=== PATIENT | female | born 1995 | race Caucasian/White ===

== ENCOUNTER 2018-03-23 07:52 | Emergency (ER) | payer MEDICAID, OTHER ==
[2018-03-23 08:10] VITALS: TEMP 98.1
--- NOTE | 2018-03-23 08:26 | ED.PDOC ---
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 MISSED A PERIOD AND HAS HAD TWO URINE PREGNACY TEST, ONE POSITIVE AND ONE NEGATIVE. - History of Present Illness Timing/Duration: other - TWO WEEKS Severity: moderate Improving Factors: nothing Worsening Factors: nothing Associated Symptoms: other - GALACTORRHEA Allergies/Adverse Reactions: Allergies Amoxicillin Allergy (Verified 03/23/18 08:11) Ceftriaxone [From Rocephin] Allergy (Verified 03/23/18 08:11) Home Medications: Ambulatory Orders HYDROcodone 5MG/APAP 325MG [[place] 5/325] 5 mg PO PRN PRN 03/19/16 Ciprofloxacin [Cipro] 500 mg PO BID #20 tab 03/30/16 Naproxen [Naprosyn] 250 mg PO BID #10 tab 03/23/18 Nitrofurantoin Monohydrate Mac [Macrobid] 100 mg PO BID #20 capsule 03/23/18 Review of Systems - Review of Systems Constitutional: States: malaise EENTM: States: no symptoms reported Respiratory: States: no symptoms reported Cardiology: States: no symptoms reported Gastrointestinal/Abdominal: States: no symptoms reported Genitourinary: States: other - PELVIC CRAMPS AND GALACTORRHEA Musculoskeletal: States: no symptoms reported Skin: States: no symptoms reported Neurological: States: no symptoms reported Endocrine: States: no symptoms reported Hematologic/Lymphatic: States: no symptoms reported Past Medical History (General) - Patient Medical History Hx Seizures: No Hx Stroke: No Hx Dementia: No Hx Asthma: No Hx of COPD: No Hx Cardiac Disorders: No Hx Congestive Heart Failure: No Hx Pacemaker: No Hx Hypertension: No Hx Thyroid Disease: No Hx Diabetes: No Hx Gastroesophageal Reflux: No Hx Renal Disease: No Hx Cancer: No Hx of HIV: No Hx Hepatitis C: No Hx MRSA: No Surgical History: other - Vaccination History Hx Tetanus, Diphtheria Vaccination: Yes Hx Influenza Vaccination: Yes Hx Pneumococcal Vaccination: Yes - Social History Hx Tobacco Use: Yes Hx Chewing Tobacco Use: No Hx Alcohol Use: No Hx Substance Use: No Hx Substance Use Treatment: No Hx Depression: No Hx Physical Abuse: No Hx Emotional Abuse: No Hx Suspected Abuse: No - Female History Hx Last Menstrual Period: 09/06/15 Patient : Yes Expected Date of Delivery:: 06/17/16 Hx Gestational Age: 30 Family Medical History - Family History Mother Family History: Unknown Name: Missy Age (years): 48 Living Status: Still Living Hx Cardiac Disease: No Physical Exam - Physical Exam General Appearance: Alert, Other - MILD DISTRESS Eye Exam: bilateral normal Ears, Nose, Throat: hearing grossly normal Neck: non-tender, full range of motion, supple Respiratory: chest non-tender, lungs clear, normal breath sounds, no respiratory distress Cardiovascular/Chest: normal peripheral pulses, regular rate, rhythm, no edema, no gallop, no JVD, no murmur Gastrointestinal/Abdominal: normal bowel sounds, non tender, soft, no organomegaly, no pulsatile mass Rectal Exam: deferred Back Exam: normal inspection Extremity: normal range of motion Neurologic: no motor/sensory deficits, alert, normal mood/affect, oriented x 3 Skin Exam: normal color Lymphatic: no adenopathy Progress - Results/Orders Results/Orders: BHCG: NEGATIVE UA: MILD INFECTION Departure - Departure Clinical Impression: Urinary tract infection Qualifiers: Urinary tract infection type: acute cystitis Hematuria presence: without hematuria Qualified Code(s): N30.00 - Acute cystitis without hematuria Time of Disposition: :13 Disposition: Discharge to Home or Self Care Condition: Excellent Departure Forms: ED Discharge - Pt. Copy, Patient Portal Self Enrollment Diet: resume usual diet Referrals: Libia Glass NP [Primary Care Provider] - 1-2 Weeks Prescriptions: Naproxen [Naprosyn] 250 mg PO BID #10 tab Nitrofurantoin Monohydrate Mac [Macrobid] 100 mg PO BID #20 capsule Home Medications: Ambulatory Orders HYDROcodone 5MG/APAP 325MG [[place] 5/325] 5 mg PO PRN PRN 03/19/16 Ciprofloxacin [Cipro] 500 mg PO BID #20 tab 03/30/16 Naproxen [Naprosyn] 250 mg PO BID #10 tab 03/23/18 Nitrofurantoin Monohydrate Mac [Macrobid] 100 mg PO BID #20 capsule 03/23/18
[2018-03-23 09:09] VITALS: O2SAT 95
[2018-03-23 09:24] VITALS: BP 104/65
== END 2018-03-23 09:24 | disposition home or self-care (01) ==
LOC: ER 07:52
DX: O23.10 Infections of bladder in pregnancy, unspecified trimester (principal); O92.6 Galactorrhea; Z3A.00 Weeks of gestation of pregnancy not specified; Z87.891 Personal history of nicotine dependence; Z88.1 Allergy status to other antibiotic agents

== ENCOUNTER 2018-06-22 08:04 | Emergency (ER) | payer SELFPAY ==
[2018-06-22] MEDS ORDERED: BENZONATATE PERLES 100 MG CAP PO ONE (08:24)
[2018-06-22] MEDS ORDERED: IPRATROPIUM/ALBUTEROL 3 ML VIAL NEB ONE (08:24)
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
--- NOTE | 2018-06-22 08:57 | RAD ---
EXAM DESCRIPTION: Chest,2 Views CLINICAL HISTORY: shortness of breath COMPARISON: None available FINDINGS: The cardiomediastinal silhouette is unremarkable. There is no airspace consolidation or pleural effusion. Minimal subsegmental atelectasis or scarring in the right lung base. No pulmonary hyperinflation. There is no pneumothorax or acute fracture. IMPRESSION: Negative exam. Electronically signed by: Marvin Lazaro MD 06/22/2018 8:55 AM CDT
[2018-06-22] MEDS ORDERED: methylPREDNISolone SODIUM SUC 125 MG/2 ML VIAL IM ONE (09:26)
[2018-06-22 09:44] VITALS: BP 123/72; TEMP 96.2; O2SAT 94
== END 2018-06-22 09:44 | disposition home or self-care (01) ==
LOC: ER 08:04
DX: J20.8 Acute bronchitis due to other specified organisms (principal); F17.210 Nicotine dependence, cigarettes, uncomplicated; Z88.1 Allergy status to other antibiotic agents
CPT/HCPCS: 36415; 71046; 85025; 94640; J2930; J7620

== ENCOUNTER 2018-07-06 10:39 | Emergency (ER) | payer SELFPAY ==
--- NOTE | 2018-07-06 11:09 | ED.PDOC ---
History of Present Illness - General Chief Complaint: Respiratory Problem Stated Complaint: shortness of breath Time Seen by Provider: 07/06/18 10:59 Source: patient Exam Limitations: no limitations - History of Present Illness Initial Comments: PT C/O "ANXIETY ATTACK". WAS SEEN 06/22/18 AND DX'D WITH BRONCHITIS. HAS BEEN USING NEBULIZER AND INHALERS NOW C/O "SEVERE ANXIETY" WHICH SHE HAS HX OF. C/O SOB AND R SIDED CP. Timing/Duration: other - TODAY Severity: moderate Activities at Onset: none Possible Cause: other - SIMILAR TO PREVIOUS EPISODES OF ANXIETY Improving Factors: nothing Worsening Factors: nothing Associated Symptoms: chest pain Allergies/Adverse Reactions: Allergies Amoxicillin Allergy (Verified 03/23/18 08:11) Ceftriaxone [From Rocephin] Allergy (Verified 03/23/18 08:11) Home Medications: Ambulatory Orders Albuterol Inhaler [Ventolin Hfa Inhaler] 1 puff INH Q6HR 7 Days #1 inh 06/22/18 Albuterol Sulfate Nebs [Proventil Nebs] 2.5 mg INH Q4HR PRN 07/06/18 Review of Systems - Review of Systems Constitutional: States: other - NIGHT SWEATS. Denies: chills, fever EENTM: States: other - DIFFICULTY SWALLOWING Respiratory: States: cough, short of breath. Denies: wheezing Cardiology: States: chest pain. Denies: palpitations, syncope Gastrointestinal/Abdominal: States: nausea. Denies: abdominal pain, vomiting Genitourinary: States: no symptoms reported Musculoskeletal: States: no symptoms reported Neurological: States: no symptoms reported Endocrine: States: no symptoms reported Hematologic/Lymphatic: States: no symptoms reported - PSYCH: HX OF ANIETY ATTACKS Past Medical History (General) - Patient Medical History Hx Seizures: No Hx Stroke: No Hx Dementia: No Hx Asthma: No Hx of COPD: No Hx Cardiac Disorders: No Hx Congestive Heart Failure: No Hx Pacemaker: No Hx Hypertension: No Hx Thyroid Disease: No Hx Diabetes: No Hx Gastroesophageal Reflux: No Hx Renal Disease: No Hx Cancer: No Hx of HIV: No Hx Hepatitis C: No Hx MRSA: No Hx Other PMH: Yes - ANXIETY Surgical History: other - Vaccination History Hx Tetanus, Diphtheria Vaccination: No Hx Influenza Vaccination: No Hx Pneumococcal Vaccination: No - Social History Hx Tobacco Use: Yes Hx Chewing Tobacco Use: No Hx Alcohol Use: No Hx Substance Use: No Hx Substance Use Treatment: No Hx Depression: No Hx Physical Abuse: No Hx Emotional Abuse: No Hx Suspected Abuse: No - Female History Hx Last Menstrual Period: 09/06/15 Patient : - Pt denies but could be Expected Date of Delivery:: 06/17/16 Hx Gestational Age: 30 - Triage Comment ED Triage Comment: Pt c/o dizziness, pt's respirations are rapid, pt wheeled to room 2 bc of dizziness. Family Medical History - Family History Mother Family History: Unknown Name: Missy Age (years): 48 Living Status: Still Living Hx Cardiac Disease: No Physical Exam - Physical Exam General Appearance: Anxious, Obvious distress, Other - HYPERVENTILATING Eyes, Ears, Nose, Throat Exam: PERRL/EOMI, normal ENT inspection, other - OP WIDELY PATENT Neck: non-tender, full range of motion, supple Respiratory: lungs clear, normal breath sounds, other - TACHYPNIC Cardiovascular/Chest: no murmur, tachycardia - REGULAR Gastrointestinal/Abdominal: non tender, soft, no organomegaly Extremity: normal range of motion, non-tender, normal inspection, other - NO CLUBBING/EDEMA, CARPO-PEDAL SPASM Neurologic: alert, other - ANXIOUS Skin Exam: normal color, warm/dry - NO CYANOSIS Lymphatic: no adenopathy Progress - Progress Progress: 07/06/18 11:36 PT BETTER AFTER ATIVAN, C/O BLURRED VISION. REVIEWED PREVIOUS VISIT, HAD NL CBC , NL CXR, WAS GIVEN PREDNISONE, TESSALON, AND ALBUTEROL MDI AND NEBULIZER. 07/06/18 12:04 VS HAVE IMPROVED, SATS 98% RA, NL, STILL C/O SOB, RESTLESS AND AGITATED. WILL GET LAB AND RX TORADOL. 07/06/18 13:15 SITTING UP IN BED, NO DISTRESS, TEXTING ON CELL PHONE. 07/06/18 14:12 DISCUSSED LAB AND DRUG SCREEN RESULTS WITH PT. OFFERED TO CHECK FOR STD'S BUT PT PREFERS TO GO TO HER DR. ADVISED HER TO GO SOON SECONDARY TO IUD. - EKG/XRAY/CT EKG: Sinus, Tachy - RATE 119, NAL AXIS, NL INTERVALS, REJI, , nonspecific ST T wave Chg - NAIP, , Changed from - 04/03/2016, INTERVAL DEVELOPMENT OF REJI AND SINUS TACH XRAY: chest - JULIO Departure - Departure Clinical Impression: Hyperventilation, Methamphetamine abuse, infection, trichomonal Time of Disposition: 14:13 Disposition: Discharge to Home or Self Care Condition: Good Departure Forms: ED Discharge - Pt. Copy, Patient Portal Self Enrollment Instructions: Trichomoniasis, Screening for Sexually Transmitted Infections, Hyperventilation, Methamphetamine Referrals: Libia Glass NP [Primary Care Provider] - 1-2 Weeks Home Medications: Ambulatory Orders Albuterol Inhaler [Ventolin Hfa Inhaler] 1 puff INH Q6HR 7 Days #1 inh 06/22/18 Albuterol Sulfate Nebs [Proventil Nebs] 2.5 mg INH Q4HR PRN 07/06/18
[2018-07-06] MEDS ORDERED: PROMETHAZINE HCL INJ 12.5 MG in SODIUM CHLORIDE 0.9% 50ML 50 ML IVPB ONE (12:06)
[2018-07-06] MEDS ORDERED: KETOROLAC TROMETHAMINE INJ 30 MG/ML VIAL IV ONE (12:06)
[2018-07-06] MEDS ORDERED: PROMETHAZINE HCL INJ 25 MG/ML VIAL ONE (12:17)
[2018-07-06] MEDS ORDERED: SODIUM CHLORIDE 0.9% 50ML 50 ML ONE (12:18)
--- NOTE | 2018-07-06 12:57 | RAD ---
EXAM DESCRIPTION: Chest,1 View CLINICAL HISTORY: Shortness of breath COMPARISON: June 22, 2018 FINDINGS: Single upright portable frontal view of the chest. Cardiomediastinal silhouette and pulmonary vascularity are within normal limits. Lungs are clear without focal consolidations. Bilateral costophrenic angles are sharp. No pneumothorax. Visualized osseous structures show no destructive lesions. Included upper abdomen shows a nonspecific bowel gas pattern. IMPRESSION: No radiographic evidence for acute cardiopulmonary process. Electronically signed by: Austin Daley MD 07/06/2018 12:55 PM CDT
[2018-07-06] MEDS ORDERED: metroNIDAZOLE 500 MG TAB PO ONE (14:16)
[2018-07-06 14:25] VITALS: BP 115/61; TEMP 97; O2SAT 96
== END 2018-07-06 14:25 | disposition home or self-care (01) ==
LOC: ER 10:39
DX: R06.4 Hyperventilation (principal); F15.10 Other stimulant abuse, uncomplicated; A59.00 Urogenital trichomoniasis, unspecified; R42 Dizziness and giddiness; F41.9 Anxiety disorder, unspecified; Z87.891 Personal history of nicotine dependence; Z88.1 Allergy status to other antibiotic agents
CPT/HCPCS: 36415; 71045; 80053; 80307; 81001; 85025; 85379; 87086; 93005; A4216; J1885; J2060; J2550

== ENCOUNTER 2018-08-14 14:31 | Emergency (ER) | payer SELFPAY ==
--- NOTE | 2018-08-14 14:51 | ED.PDOC ---
History of Present Illness - General Chief Complaint: Abdominal Pain Stated Complaint: R lower abdominal discomfort Time Seen by Provider: 08/14/18 14:48 Information Source: patient Exam Limitations: no limitations - History of Present Illness Initial Comments: patient comes in today with right upper and lower abdominal pain. Patient states yesterday she noticed she started having a sharp pain that times intermittent with cramping that radiates to her back. The pain persisted all of yesterday and worsened today. She's had some nausea but no emesis. She is still having normal bowel movements and denies any diarrhea. Patient's had no dysuria and she does not believe she is although she is not currently taking control she is on her menses. Patient has otherwise been fairly healthy and denies any other symptoms including fever, chills, cough, cold symptoms, chest pain, or shortness of breath. Her past medical his history is significant for some injuries from [place] with skin grafts subsequently but no other surgeries in the past. She has a history of tobacco use, occasional alcohol use, and marijuana use. She denies any other drug use. Abdominal Pain Onset Location: RUQ, RLQ Pain Radiation: back Quality: severe, cramping, intermittent Timing/Duration: 24 hours Improving Factors: nothing Worsening Factors: nothing Associated Symptoms: nausea/vomiting Review of Systems - Review of Systems Constitutional: States: no symptoms reported. Denies: chills, fever, weakness EENTM: States: no symptoms reported. Denies: eye pain, ear pain, nose pain, nose congestion, throat pain Respiratory: States: no symptoms reported. Denies: cough, short of breath, wheezing Cardiology: States: no symptoms reported. Denies: chest pain, edema, palpitations Gastrointestinal/Abdominal: States: see HPI, abdominal pain, nausea. Denies: constipation, diarrhea, vomiting Genitourinary: States: no symptoms reported. Denies: discharge, dysuria, frequency, hematuria Musculoskeletal: States: no symptoms reported Skin: States: no symptoms reported Neurological: States: no symptoms reported Past Medical History (General) - Patient Medical History Hx Seizures: No Hx Stroke: No Hx Dementia: No Hx Asthma: No Hx of COPD: No Hx Cardiac Disorders: No Hx Congestive Heart Failure: No Hx Pacemaker: No Hx Hypertension: No Hx Thyroid Disease: No Hx Diabetes: No Hx Gastroesophageal Reflux: No Hx Renal Disease: No Hx Cancer: No Hx of HIV: No Hx Hepatitis C: No Hx MRSA: No - Vaccination History Hx Tetanus, Diphtheria Vaccination: No Hx Influenza Vaccination: No Hx Pneumococcal Vaccination: No - Social History Hx Tobacco Use: Yes Hx Chewing Tobacco Use: No Hx Alcohol Use: No Hx Substance Use: No Hx Substance Use Treatment: No Hx Depression: No Hx Physical Abuse: No Hx Emotional Abuse: No Hx Suspected Abuse: No - Female History Hx Last Menstrual Period: 09/06/15 Patient : - Pt denies but could be Expected Date of Delivery:: 06/17/16 Hx Gestational Age: 29 Family Medical History - Family History Mother Family History: Unknown Name: Missy Age (years): 48 Living Status: Still Living Hx Cardiac Disease: No Physical Exam - Physical Exam General Appearance: Alert, Anxious, Restless Eyes, Ears, Nose, Throat Exam: PERRL/EOMI, normal ENT inspection, TMs normal, pharynx normal Neck: non-tender, full range of motion, supple, normal inspection Respiratory: chest non-tender, lungs clear, normal breath sounds, no respiratory distress Cardiovascular/Chest: normal peripheral pulses, regular rate, rhythm, no edema, no gallop, no murmur Peripheral Pulses: No deficit Gastrointestinal/Abdominal: normal bowel sounds, soft, other - non distended with no guarding and no rebound, TTP in the RUQ and RLQ Extremity: normal range of motion Neurologic: alert, oriented x 3 Progress - Progress Progress: 08/14/18 15:55 discussed results with patient. Given Toradol for pain and MOM for constipation. Patient counseled on need to stop drug use. She states she is planning on having a spot in rehab next month. - Results/Orders Results/Orders: 08/14/18 15:10 URINE CULTURE W/COLONY COUNT Stat Laboratory Results WBC 8.4 K/mm3 (4.8-10.8) 08/14/18 14:57 RBC 4.61 M/mm3 (4.20-5.40) 08/14/18 14:57 Hgb 13.7 gm/dL (12.0-16.0) 08/14/18 14:57 Hct 41.5 % (36.0-47.0) 08/14/18 14:57 MCV 90.1 fl (81.0-99.0) 08/14/18 14:57 MCH 29.7 pg (27.0-31.0) 08/14/18 14:57 MCHC 33.0 g/dL (33.0-37.0) 08/14/18 14:57 RDW 13.6 % (11.5-14.5) 08/14/18 14:57 Plt Count 254 K/mm3 (130-400) 08/14/18 14:57 MPV 8.2 fl (7.40-10.4) 08/14/18 14:57 Absolute Neuts (auto) 5.50 K/uL (1.8-6.8) 08/14/18 14:57 Absolute Lymphs (auto) 1.80 K/uL (1.0-3.4) 08/14/18 14:57 Absolute Monos (auto) 0.70 K/uL (0.2-0.8) 08/14/18 14:57 Absolute Eos (auto) 0.30 K/uL (0.0-0.4) 08/14/18 14:57 Absolute Basos (auto) 0.00 K/uL (0.0-0.1) 08/14/18 14:57 Neutrophils % 65.7 % (42.0-78.0) 08/14/18 14:57 Lymphocytes % 21.5 % (20.0-50.0) 08/14/18 14:57 Monocytes % 8.8 % (2.0-9.0) 08/14/18 14:57 Eosinophils % 3.5 % (1.0-5.0) 08/14/18 14:57 Basophils % 0.5 % (0.0-2.0) 08/14/18 14:57 Sodium 135 mmol/L (135-145) 08/14/18 14:57 Potassium 3.3 mmol/L (3.6-5.0) L 08/14/18 14:57 Chloride 102 mmol/L (101-111) 08/14/18 14:57 Carbon Dioxide 26 mmol/L (21-31) 08/14/18 14:57 Anion Gap 10.3 (12-18) L 08/14/18 14:57 BUN 6 mg/dL (7-18) L 08/14/18 14:57 Creatinine 0.53 mg/dL (0.6-1.3) L 08/14/18 14:57 BUN/Creatinine Ratio 11.3 (10-20) 08/14/18 14:57 Random Glucose 59 mg/dL (70-105) L 08/14/18 14:57 Serum Osmolality 265.5 mOsm/L (275-295) L 08/14/18 14:57 Calcium 8.7 mg/dL (8.4-10.2) 08/14/18 14:57 Total Bilirubin 0.4 mg/dL (0.2-1.0) 08/14/18 14:57 AST 57 IU/L (10-42) H 08/14/18 14:57 ALT 40 IU/L (10-60) 08/14/18 14:57 Alkaline Phosphatase 62 IU/L (42-121) 08/14/18 14:57 Serum Total Protein 7.0 gm/dL (6.4-8.2) 08/14/18 14:57 Albumin 3.8 g/dl (3.2-5.5) 08/14/18 14:57 Globulin 3.2 gm/dL (2.3-3.5) 08/14/18 14:57 Albumin/Globulin Ratio 1.2 (1.1-1.9) 08/14/18 14:57 Amylase 39 U/L (28-100) 08/14/18 14:57 Lipase 15 U/L (22-51) L 08/14/18 14:57 Serum HCG, Qual Negative 08/14/18 14:57 Urine Color Yellow (Yellow) 08/14/18 15:10 Urine Appearance Clear (Clear) 08/14/18 15:10 Urine pH 6.0 (4.5-7.8) 08/14/18 15:10 Ur Specific Bryan <= 1.005 (1.005-1.030) 08/14/18 15:10 Urine Protein Negative mg/dL 08/14/18 15:10 Urine Glucose (UA) Negative mg/dL (Negative) 08/14/18 15:10 Urine Ketones Negative mg/dL (NEGATIVE) 08/14/18 15:10 Urine Blood Trace-intact (Negative) H 08/14/18 15:10 Urine Nitrite Negative 08/14/18 15:10 Urine Bilirubin Negative (NEGATIVE) 08/14/18 15:10 Urine Urobilinogen 0.2 mg/dL (0.2-1.0) 08/14/18 15:10 Ur Leukocyte Esterase Small (Negative) H 08/14/18 15:10 Urine RBC 0-1 /hpf 08/14/18 15:10 Urine WBC 5-10 /hpf H 08/14/18 15:10 Ur Epithelial Cells 5-10 /hpf 08/14/18 15:10 Urine Bacteria Rare 08/14/18 15:10 Urine Opiates Screen Negative ng/mL (2000) 08/14/18 15:10 Urine Barbiturates Negative ng/mL (200) 08/14/18 15:10 Ur Phencyclidine Scrn Negative ng/mL (25) 08/14/18 15:10 U Amphetamin/Meth Scrn Positive ng/mL (1000) H 08/14/18 15:10 U Benzodiazepines Scrn Negative ng/mL (200) 08/14/18 15:10 U Cocaine Metab Screen Negative ng/mL (300) 08/14/18 15:10 U Cannabinoids Screen Positive ng/mL (50) H 08/14/18 15:10 - EKG/XRAY/CT CT: constipation no other acute process Departure - Departure Clinical Impression: Methamphetamine abuse Constipation Qualifiers: Constipation type: unspecified constipation type Qualified Code(s): K59.00 - Constipation, unspecified Disposition: Discharge to Home or Self Care Condition: Fair Departure Forms: ED Discharge - Pt. Copy, Patient Portal Self Enrollment Instructions: DI for Abdominal Pain-Adult Referrals: Libia Glass NP [Primary Care Provider] - 1-2 Weeks Home Medications: Ambulatory Orders Albuterol Inhaler [Ventolin Hfa Inhaler] 1 puff INH Q6HR 7 Days #1 inh 06/22/18 Albuterol Sulfate Nebs [Proventil Nebs] 2.5 mg INH Q4HR PRN 07/06/18 Additional Instructions: return to ER for increase abdominal pain, stop drug use, take OTC colace for one week.
[2018-08-14 14:56] VITALS: TEMP 98.5
--- NOTE | 2018-08-14 15:51 | CT ---
PROCEDURE: Abdoment/Pelvis w/o Contrast HISTORY: RLQ and RUQ pain Indication: Same as above Comparison: None Technique: CT of the abdomen and pelvis was done without intravenous contrast. Images were obtained from the lung base to the level of the pubic symphysis in axial plane, followed by orthogonal sagittal and coronal reconstruction. Oral contrast was not given for the study. This exam was performed according to our departmental dose-optimization program, which includes automated exposure control, adjustment of the mA and/or KV according to the patient's size and/or use of iterative reconstruction technique. FINDINGS: Images through the lung bases do not show any focal infiltrates or pleural effusions. The liver, gallbladder, pancreas, spleen and the bilateral adrenal glands appear unremarkable, given the limitation of lack of intravenous contrast. The bilateral kidneys do not show any evidence of hydronephrosis or nephrolithiasis. The bilateral ureters and the bilateral periureteral soft tissues and fat planes are unremarkable. The urinary bladder is unremarkable, without any evidence of wall thickening, calculi or filling defects. The small bowel appears unremarkable, without any evidence of small bowel obstruction or bowel wall thickening. There is no CT evidence of acute appendicitis, pericecal inflammatory change or ileocecal mesenteric adenitis. The ileocecal junction appears unremarkable. There is no CT evidence of acute colonic diverticulitis or colitis or large bowel obstruction. There is moderate amount of constipation There is no pathological lymphadenopathy in the retroperitoneum or in the pelvic region. There is no evidence of free fluid or free air in the abdomen or the pelvic region. There is no clinically significant abdominal aortic aneurysm. There is no clinically significant inguinal or ventral hernia. An anteverted uterus is seen The visualized lumbar spine shows levoscoliotic curvature. The paravertebral soft tissues are unremarkable. The remainder of the pelvic structures are unremarkable. IMPRESSION: There are no acute findings in the abdomen and the pelvis. There is moderate amount of constipation Electronically signed by: Mehul Mayo MD 08/14/2018 3:50 PM [employer] Workstation: [id number]
[2018-08-14] MEDS ORDERED: MAGNESIUM HYDROXIDE 30 ML UD PO ONE (15:54)
[2018-08-14] MEDS ORDERED: KETOROLAC TROMETHAMINE INJ 60 MG/2 ML VIAL IM ONE (15:54)
[2018-08-14 16:03] VITALS: BP 90/62; O2SAT 98
== END 2018-08-14 16:30 | disposition home or self-care (01) ==
LOC: ER 14:31
DX: K59.00 Constipation, unspecified (principal); F15.10 Other stimulant abuse, uncomplicated; Z87.891 Personal history of nicotine dependence
CPT/HCPCS: 36415; 74176; 80053; 80307; 81001; 82150; 83690; 84703; 85025; 87086; J1885

== ENCOUNTER 2018-08-22 17:15 | Emergency (ER) | payer MEDICAID ==
[2018-08-22] MEDS ORDERED: SODIUM CHLORIDE 0.9% 1000ML 1,000 ML IVS ONE ×2 (17:24→19:52)
[2018-08-22] MEDS ORDERED: NITROGLYCERIN 0.4 MG 25 EA TAB SL ONE ×2 (17:39→17:40)
[2018-08-22] MEDS ORDERED: MORPHINE SULFATE INJ 10 MG/ML VIAL IV ONE ×2 (18:01→21:21)
[2018-08-22] MEDS ORDERED: MAGNESIUM SULFATE PREMIX 2GM 2 GM in PREMIX BAG 1 BAG IVPB ONE (18:02)
[2018-08-22] MEDS ORDERED: MAGNESIUM SULFATE PREMIX 2GM 50 ML IVPB ONE (18:05)
--- NOTE | 2018-08-22 18:16 | RAD ---
EXAM DESCRIPTION: Abdomen Series CLINICAL HISTORY: severe rigth sided abd pain COMPARISON: None FINDINGS: Frontal view of the chest and supine and upright images of the abdomen were submitted. Bowel gas pattern suggests hepatomegaly. There is moderate stool in the colon. Cardiac silhouette is within normal limits. There is no focal parenchymal or pleural disease. There is no free air in the abdomen. There is no evidence of bowel obstruction. IMPRESSION: Possible hepatomegaly. Constipation. Electronically signed by: Aaron Savage 08/22/2018 6:15 PM [facility]
[2018-08-22] MEDS ORDERED: ALUMINUM & MAGNESIUM HYDROXIDE 30 ML UD PO ONE (18:44)
[2018-08-22] MEDS ORDERED: MAGNESIUM HYDROXIDE 30 ML UD PO ONE (18:44)
[2018-08-22 20:04] VITALS: TEMP 99.9
[2018-08-22] MEDS ORDERED: MORPHINE SULFATE INJ 10 MG/ML VIAL ONE (21:24)
--- NOTE | 2018-08-22 22:21 | CT ---
EXAM DESCRIPTION: Abdomen/Pelvis w/Contrast CLINICAL HISTORY:23 years Female, severe recurrent right sided abd pain, hx meth use Comparison: August 14, 2018 TECHNIQUE: Contiguous axial images of the abdomen and pelvis were obtained followed by reconstruction images. This exam was performed according to our departmental dose-optimization program, which includes automated exposure control, adjustment of the mA and/or kV according to patient size and/or use of iterative reconstruction technique. FINDINGS: Lung bases: Lung bases are clear. Heart: Visualized heart is within normal limits in size. Liver:No focal liver lesion. Trace perihepatic infiltration/fluid adjacent to the inferior hepatic tip. Gallbladder:Unremarkable. No gallstones. No gallbladder wall thickening or pericholecystic fluid. Spleen:Unremarkable Pancreas: Pancreas is unremarkable. Adrenal glands:Within normal limits. Kidneys/ureters:Within normal limits Bladder:Unremarkable. Pelvic organs: Trace pelvic fluid Vascular structures: within normal limits Peritoneum: No free fluid. Lymph nodes: No abnormal lymph nodes. Stomach/small bowel/colon: Stomach is unremarkable. Small bowel is unremarkable. Colon is unremarkable. Appendix: No evidence of appendicitis. Bones: No acute osseous abnormality. Soft tissues: Unremarkable.. IMPRESSION: * Trace perihepatic infiltration/fluid adjacent to the inferior hepatic tip, nonspecific. A right upper quadrant ultrasound may be obtained for further evaluation. * Trace pelvic fluid, likely physiological. * No bowel inflammatory changes. Electronically signed by: Jonathan Rojo MD 08/22/2018 10:20 PM [employer]
[2018-08-22] MEDS ORDERED: KETOROLAC TROMETHAMINE INJ 30 MG/ML VIAL IV ONE (22:50)
[2018-08-22] MEDS ORDERED: levoFLOXacin 500 MG TAB PO ONE (23:18)
[2018-08-22] MEDS ORDERED: metroNIDAZOLE 500 MG TAB PO ONE (23:18)
[2018-08-22] MEDS ORDERED: DOXYCYCLINE HYCLATE CAP 100 MG CAP PO ONE (23:18)
[2018-08-22] MEDS ORDERED: FLUCONAZOLE 100 MG TAB PO ONE (23:36)
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
[2018-08-23 00:02] VITALS: BP 114/74; O2SAT 99
== END 2018-08-22 23:55 | disposition home or self-care (01) ==
LOC: ER 17:15
DX: A59.01 Trichomonal vulvovaginitis (principal); K59.03 Drug induced constipation; R10.11 Right upper quadrant pain; F15.10 Other stimulant abuse, uncomplicated; F41.0 Panic disorder [episodic paroxysmal anxiety]; Z87.891 Personal history of nicotine dependence; Z88.1 Allergy status to other antibiotic agents
CPT/HCPCS: 36415; 74019; 74177; 80053; 81001; 82150; 82550; 82553; 83605; 83735; 84443; 84484; 84703; 85025; 85379; 85610; 85730; 87086; 87210; 87491; 87591; J1885; J2060; J2270; J3475; J7030

== ENCOUNTER 2018-12-18 15:14 | Emergency (ER) | payer MEDICAID ==
[2018-12-18 15:30] VITALS: BP 129/82; TEMP 98.9; O2SAT 97
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
[2018-12-18] MEDS ORDERED: AZITHROMYCIN 250 MG TAB PO ONE (16:11)
[2018-12-18] MEDS ORDERED: predniSONE 10 MG TAB PO ONE (16:11)
[2018-12-18] MEDS ORDERED: OXYMETAZOLINE NASAL SPRAY 15 ML BTTL BNAS PRN (16:11)
== END 2018-12-18 16:48 | disposition home or self-care (01) ==
LOC: ER 15:14
DX: J32.9 Chronic sinusitis, unspecified (principal); N91.2 Amenorrhea, unspecified; Z32.02 Encounter for pregnancy test, result negative; Z87.891 Personal history of nicotine dependence; Z88.1 Allergy status to other antibiotic agents
CPT/HCPCS: 81025; J7512; Q0144

== ENCOUNTER 2019-01-17 10:30 | Emergency (ER) | payer SELFPAY ==
[2019-01-17] MEDS ORDERED: AZITHROMYCIN IVPB ONE (10:51)
[2019-01-17] MEDS ORDERED: SODIUM CHLORIDE 0.9% IVPB ONE (10:51)
[2019-01-17] MEDS ORDERED: CIPROFLOXACIN 500 MG TAB PO ONE (10:51)
[2019-01-17] MEDS ORDERED: AZITHROMYCIN IV 500 MG VIAL IVPB ONE (10:53)
[2019-01-17] MEDS ORDERED: SODIUM CHLORIDE 0.9% 250ML 250 ML ONE (10:54)
--- NOTE | 2019-01-17 11:25 | ED.PDOC ---
History of Present Illness - General Chief Complaint: Problem Time Seen by Provider: 01/17/19 10:31 Source: patient Exam Limitations: no limitations - History of Present Illness Initial Comments: the patient is a 23-year-old female presenting to the emergency room mainly due to concern for an STD. The patient is not really experiencing significant symptoms herself but has reportedly been with someone that has given someone else chlamydia. Again she is asymptomatic. No discharge. She was with him very recently. No external lesions. She defers a pelvic exam at this time. Timing/Duration: unsure Severity: mild Improving Factors: nothing Worsening Factors: nothing Associated Symptoms: denies symptoms Allergies/Adverse Reactions: Allergies Amoxicillin Allergy (Verified 08/14/18 14:48) Ceftriaxone [From Rocephin] Allergy (Verified 08/14/18 14:48) Home Medications: Ambulatory Orders Hydroxyzine HCl 25 mg PO TID PRN 01/17/19 Olanzapine 5 mg PO DAILY 01/17/19 Review of Systems - Review of Systems Constitutional: States: no symptoms reported EENTM: States: no symptoms reported Respiratory: States: no symptoms reported Cardiology: States: no symptoms reported Gastrointestinal/Abdominal: States: no symptoms reported Genitourinary: States: no symptoms reported Musculoskeletal: States: no symptoms reported Skin: States: no symptoms reported Neurological: States: no symptoms reported Endocrine: States: no symptoms reported All other Systems: No Change from Baseline Past Medical History (General) - Patient Medical History Hx Seizures: No Hx Stroke: No Hx Dementia: No Hx Asthma: No Hx of COPD: No Hx Cardiac Disorders: No Hx Congestive Heart Failure: No Hx Pacemaker: No Hx Hypertension: No Hx Thyroid Disease: No Hx Diabetes: No Hx Gastroesophageal Reflux: No Hx Renal Disease: No Hx Cancer: No Hx of HIV: No Hx Hepatitis C: No Hx MRSA: No Surgical History: other - Vaccination History Hx Tetanus, Diphtheria Vaccination: No Hx Influenza Vaccination: Yes Hx Pneumococcal Vaccination: No - Social History Hx Tobacco Use: Yes Hx Chewing Tobacco Use: No Hx Alcohol Use: Yes Hx Substance Use: Yes Hx Substance Use Treatment: No Hx Depression: No Hx Physical Abuse: No Hx Emotional Abuse: No Hx Suspected Abuse: No - Female History Patient is a Female of Child Bearing Age (10 -59 yrs old): Yes Hx Last Menstrual Period: 11/24/18 Patient : No - Pt denies but could be Expected Date of Delivery:: 06/17/16 Hx Gestational Age: 30 Family Medical History - Family History Mother Family History: Unknown Name: Missy Age (years): 48 Living Status: Still Living Hx Cardiac Disease: No Physical Exam - Physical Exam General Appearance: Alert, Comfortable, No apparent distress Eye Exam: bilateral normal Ears, Nose, Throat: hearing grossly normal Neck: full range of motion Respiratory: no respiratory distress, no accessory muscle use Cardiovascular/Chest: normal peripheral pulses, no edema Peripheral Pulses: radial,right: 2+, radial,left: 2+ Gastrointestinal/Abdominal: non tender, soft Rectal Exam: deferred Back Exam: no CVA tenderness, no vertebral tenderness Extremity: non-tender, normal inspection, no pedal edema, normal capillary refill 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 This test is a send out. She is being treated empirically with a dose of ciprofloxacin and azithromycin due to a Rocephin allergy. She does need to follow-up in the near future with family planning or with the public health department for more comprehensive STD testing. Safe sex and avoidance of the partner in question is recommended until results of the tests are back at least. ER warnings were given. - Results/Orders Results/Orders: Laboratory Tests 01/17/19 01/17/19 10:35 10:35 Urine Color Yellow Urine Appearance Clear Urine pH 6.5 Ur Specific [place] 1.020 Urine Protein Negative Urine Glucose (UA) Negative Urine Ketones Negative Urine Blood Negative Urine Nitrite Negative Urine Bilirubin Negative Urine Urobilinogen 0.2 Ur Leukocyte Esterase Negative Urine RBC 0 Urine WBC 0 Ur Epithelial Cells 0 Urine Bacteria 0 Urine HCG, Qual Negative GC chlamydia is pending Departure - Departure Clinical Impression: Exposure to STD Disposition: Discharge to Home or Self Care Condition: Fair Departure Forms: ED Discharge - Pt. Copy, Patient Portal Self Enrollment Instructions: Chlamydia and Gonorrhea Diet: regular diet Activity: increase activity as tolerated Referrals: Libia Glass NP [Primary Care Provider] - 1-2 Weeks Home Medications: Ambulatory Orders Hydroxyzine HCl 25 mg PO TID PRN 01/17/19 Olanzapine 5 mg PO DAILY 01/17/19 Additional Instructions: the patient's 23-year-old female presenting to the emergency room due to concern for possible chlamydia exposure from her recent partner. This test is a send out. She is being treated empirically with a dose of ciprofloxacin and azithromycin due to a Rocephin allergy. She does need to follow-up in the near future with family planning or with the public health department for more comprehensive STD testing. Safe sex and avoidance of the partner in question is recommended until results of the tests are back at least. ER warnings were given.
[2019-01-17 12:34] VITALS: O2SAT 100
[2019-01-17 13:22] VITALS: BP 107/76; TEMP 97.1
== END 2019-01-17 13:21 | disposition home or self-care (01) ==
LOC: ER 10:30
DX: Z20.2 Contact with and (suspected) exposure to infections with a predominantly sexual mode of transmission (principal); Z87.891 Personal history of nicotine dependence; Z88.1 Allergy status to other antibiotic agents
CPT/HCPCS: 81001; 81025; 87491; 87591; J0456; J7050

== ENCOUNTER 2019-03-22 19:51 | Emergency (ER) | payer OTHER ==
--- NOTE | 2019-03-22 21:32 | ED.PDOC ---
History of Present Illness - General Chief Complaint: Problem Stated Complaint: possible STD Time Seen by Provider: 03/22/19 20:00 Source: patient Exam Limitations: no limitations - History of Present Illness Initial Comments: Constance Meyer 23 y/o female stated had unprotected sex 4 days ago then yesterday noticed thick yellow vaginal discharge ;had STI a year ago treated but no follow for recheck. Timing/Duration: other - see hpi Quality: moderate Onset Location: vaginal, other - 2 days ago Radiation: none Activites at Onset: sexual activity Prior abdominal problems: similar symptoms Sexual intercourse history: other - multiple partner Improving Factors: nothing Associated Symptoms: other - see hpi Allergies/Adverse Reactions: Allergies Amoxicillin Allergy (Verified 08/14/18 14:48) Ceftriaxone [From Rocephin] Allergy (Verified 08/14/18 14:48) Home Medications: Ambulatory Orders Hydroxyzine HCl 25 mg PO TID PRN 01/17/19 Olanzapine 5 mg PO DAILY 01/17/19 Review of Systems - Review of Systems Genitourinary: States: see HPI All other Systems: Reviewed and Negative, No Change from Baseline Past Medical History (General) - Patient Medical History Hx Seizures: No Hx Stroke: No Hx Dementia: No Hx Asthma: No Hx of COPD: No Hx Cardiac Disorders: No Hx Congestive Heart Failure: No Hx Pacemaker: No Hx Hypertension: No Hx Thyroid Disease: No Hx Diabetes: No Hx Gastroesophageal Reflux: No Hx Renal Disease: No Hx Cancer: No Hx of HIV: No Hx Hepatitis C: No Hx MRSA: No - Vaccination History Hx Tetanus, Diphtheria Vaccination: No Hx Influenza Vaccination: Yes Hx Pneumococcal Vaccination: No - Social History Hx Tobacco Use: Yes Hx Chewing Tobacco Use: No Hx Alcohol Use: Yes Hx Substance Use: Yes Hx Substance Use Treatment: No Hx Depression: No Hx Physical Abuse: No Hx Emotional Abuse: No Hx Suspected Abuse: No - Female History Patient is a Female of Child Bearing Age (10 -59 yrs old): Yes Hx Last Menstrual Period: 11/24/18 Patient : No - Pt denies but could be;irregular periods Hx Gestational Age: 30 Family Medical History - Family History Mother Family History: Unknown Name: Missy Age (years): 48 Living Status: Still Living Hx Cardiac Disease: No Physical Exam - Physical Exam General Appearance: Alert, Comfortable, No apparent distress Eyes, Ears, Nose, Throat Exam: normal ENT inspection Neck: supple Cardiovascular/Respiratory: regular rate, rhythm, normal peripheral pulses, no JVD Gastrointestinal/Abdominal: non tender, soft Pelvic Exam: other - deferred will see manager assessment/patient Back Exam: no vertebral tenderness Extremity: no pedal edema Neurologic: alert, oriented x 3 Skin Exam: normal color, warm/dry Progress - Progress Progress: 03/22/19 21:40 03/22/19 20:36 GC CHLAMYDIA RNA,TMA Stat Laboratory Results - last 24 hr 03/22/19 03/22/19 20:36 20:36 Urine Color Yellow Urine Appearance Clear Urine pH 6.5 Ur Specific Sheldon 1.010 Urine Protein Negative Urine Glucose (UA) Negative Urine Ketones Negative Urine Blood Negative Urine Nitrite Negative Urine Bilirubin Negative Urine Urobilinogen 0.2 Ur Leukocyte Esterase Trace H Urine RBC 0 Urine WBC 1-3 Ur Epithelial Cells 1-3 Urine Bacteria 1+ Urine HCG, Qual Negative 03/22/19 21:43 Vital Signs - 8 hr 03/22/19 20:23 Temperature 97.2 F L Pulse Rate [ 98 H Left] Respiratory 16 Rate Blood Pressure 116/83 [Right Arm] O2 Sat by Pulse 98 Oximetry Departure - Departure Clinical Impression: Vaginal discharge Time of Disposition: 21:42 Disposition: Discharge to Home or Self Care Condition: Fair Departure Forms: ED Discharge - Pt. Copy, Patient Portal Self Enrollment Referrals: Libia Glass NP [Primary Care Provider] - 1-2 Weeks Home Medications: Ambulatory Orders Hydroxyzine HCl 25 mg PO TID PRN 01/17/19 Olanzapine 5 mg PO DAILY 01/17/19 Additional Instructions: follow up with primary Md for recheck 2018 as needed
[2019-03-22] MEDS ORDERED: AZITHROMYCIN 250 MG TAB PO ONE ×2 (21:34→21:37)
[2019-03-22 22:09] VITALS: BP 116/74; TEMP 97.3; O2SAT 99
== END 2019-03-22 22:16 | disposition home or self-care (01) ==
LOC: ER 19:51
DX: N89.8 Other specified noninflammatory disorders of vagina (principal); Z87.891 Personal history of nicotine dependence; Z88.1 Allergy status to other antibiotic agents; Z87.42 Personal history of other diseases of the female genital tract
CPT/HCPCS: 81001; 81025; 87491; 87591; Q0144

== ENCOUNTER 2019-04-04 06:44 | Emergency (ER) | payer OTHER ==
[2019-04-04] MEDS ORDERED: ONDANSETRON INJ 4 MG/2 ML VIAL IV ONE (07:06)
[2019-04-04] MEDS ORDERED: LACTATED RINGERS 1,000 ML IVS ONE (07:06)
--- NOTE | 2019-04-04 07:09 | ED.PDOC ---
History of Present Illness - General Chief Complaint: GI Problem Stated Complaint: Nausea and Vomiting Time Seen by Provider: 04/04/19 07:04 Information Source: patient Exam Limitations: no limitations - History of Present Illness Initial Comments: Love Meyer 23 y/o female came to ER with N/V/D since last night unable to keep anything down.Stated ate at [employer] last night and had 2 cans of beers. Abdominal Pain Onset Location: other - none Pain Radiation: no radiation Quality: moderate, intermittent Timing/Duration: 4-6 hours Improving Factors: nothing Worsening Factors: eating Associated Symptoms: denies symptoms, other - see hpi Review of Systems - Review of Systems Gastrointestinal/Abdominal: States: see HPI, diarrhea, nausea, vomiting All other Systems: Reviewed and Negative, No Change from Baseline Past Medical History (General) - Patient Medical History Hx Seizures: No Hx Stroke: No Hx Dementia: No Hx Asthma: No Hx of COPD: No Hx Cardiac Disorders: No Hx Congestive Heart Failure: No Hx Pacemaker: No Hx Hypertension: No Hx Thyroid Disease: No Hx Diabetes: No Hx Gastroesophageal Reflux: No Hx Renal Disease: No Hx Cancer: No Hx of HIV: No Hx Hepatitis C: No Hx MRSA: No Surgical History: no surgical history - Vaccination History Hx Tetanus, Diphtheria Vaccination: Yes Hx Influenza Vaccination: Yes Hx Pneumococcal Vaccination: No Immunizations Up to Date: Yes - Social History Hx Tobacco Use: Yes Years Tobacco Use: 6 Cigarettes Packs Per Day: 1 Hx Chewing Tobacco Use: No Hx Alcohol Use: Yes Hx Substance Use: Yes - marijuana Hx Substance Use Treatment: No Hx Depression: Yes Feels Threatened In Home Enviroment: No Feels Threatened In a Relationship: No Hx Physical Abuse: No Hx Emotional Abuse: No Hx Suspected Abuse: No - Female History Patient is a Female of Child Bearing Age (10 -59 yrs old): Yes Hx Last Menstrual Period: 04/02/19 Patient : No Family Medical History - Family History Mother Family History: Unknown Name: Missy Age (years): 48 Living Status: Still Living Hx Cardiac Disease: No Physical Exam - Physical Exam General Appearance: Alert, Comfortable, No apparent distress Eyes, Ears, Nose, Throat Exam: normal ENT inspection Neck: non-tender, full range of motion, supple, normal inspection Respiratory: chest non-tender, lungs clear, normal breath sounds, no respiratory distress Cardiovascular/Chest: normal peripheral pulses, regular rate, rhythm, no murmur Peripheral Pulses: No deficit Gastrointestinal/Abdominal: non tender, soft, no organomegaly Back Exam: no CVA tenderness, no vertebral tenderness Extremity: no pedal edema, no calf tenderness Neurologic: alert, oriented x 3 Skin Exam: normal color, warm/dry Progress - Progress Progress: 04/04/19 07:13 Vital Signs - 8 hr 04/04/19 06:51 Temperature 96.4 F L Respiratory 18 Rate Blood Pressure 111/68 [Left Arm] O2 Sat by Pulse 98 Oximetry Departure - Departure Clinical Impression: Nausea, vomiting and diarrhea Disposition: Discharge to Home or Self Care Departure Forms: ED Discharge - Pt. Copy, Patient Portal Self Enrollment Referrals: Libia Glass NP [Primary Care Provider] - 1-2 Weeks Home Medications: Ambulatory Orders Hydroxyzine HCl 25 mg PO TID PRN 01/17/19 Olanzapine 5 mg PO DAILY 01/17/19 Addendum entered and electronically signed by Lolita Dill MD 04/04/19 10:10: Departure - Departure Clinical Impression: Nausea, vomiting and diarrhea, Gastroenteritis, Abdominal pain, Nausea and vomiting Time of Disposition: 10:07 Disposition: Discharge to Home or Self Care Condition: Good Departure Forms: ED Discharge - Pt. Copy, Patient Portal Self Enrollment Diet: full liquid diet Referrals: Libia Glass NP [Primary Care Provider] - 1-2 Weeks Prescriptions: Ondansetron Tab [Zofran Tab] 4 mg PO Q6HRS #1 tab Home Medications: Ambulatory Orders Hydroxyzine HCl 25 mg PO TID PRN 01/17/19 Olanzapine 5 mg PO DAILY 01/17/19 Ondansetron Tab [Zofran Tab] 4 mg PO Q6HRS #1 tab 04/04/19
[2019-04-04] MEDS ORDERED: PROMETHAZINE HCL INJ 25 MG/ML VIAL IM ONE (08:45)
[2019-04-04 09:28] VITALS: TEMP 98.7
[2019-04-04 11:32] VITALS: BP 93/60; O2SAT 97
== END 2019-04-04 10:35 | disposition home or self-care (01) ==
LOC: ER 06:44
DX: K52.9 Noninfective gastroenteritis and colitis, unspecified (principal); F32.9 Major depressive disorder, single episode, unspecified; Z87.891 Personal history of nicotine dependence
CPT/HCPCS: 36415; 80048; 80076; 82550; 82553; 83690; 84484; 84703; 85025; 85610; 85730; J2405; J2550; J7120

== ENCOUNTER 2019-06-05 12:00 | Emergency (ER) | payer OTHER ==
[2019-06-05 12:57] VITALS: TEMP 97.9
[2019-06-05 14:12] VITALS: O2SAT 100
[2019-06-05 14:13] VITALS: BP 120/84
== END 2019-06-05 13:55 | disposition home or self-care (01) ==
LOC: ER 12:00
DX: R06.4 Hyperventilation (principal); F41.0 Panic disorder [episodic paroxysmal anxiety]; E86.0 Dehydration; E87.6 Hypokalemia; R11.2 Nausea with vomiting, unspecified; F32.9 Major depressive disorder, single episode, unspecified; Z87.891 Personal history of nicotine dependence; Z88.1 Allergy status to other antibiotic agents
CPT/HCPCS: 36415; 80053; 82550; 82553; 83605; 83735; 83880; 84443; 84484; 85025; 85379; 93005; J2060; J7030

== ENCOUNTER 2019-08-15 09:06 | Emergency (ER) | payer SELFPAY ==
[2019-08-15 09:21] VITALS: TEMP 97.6
[2019-08-15] MEDS ORDERED: SODIUM CHLORIDE 0.9% (FLUSH) 10 ML SYG IV PRN (09:22)
[2019-08-15] MEDS ORDERED: SODIUM CHLORIDE 0.9% 1000ML 1,000 ML IVS ONE (09:24)
--- NOTE | 2019-08-15 09:30 | ED.PDOC ---
History of Present Illness - General Chief Complaint: General Stated Complaint: feels jittery after too many energy drinks Time Seen by Provider: 08/15/19 09:15 - History of Present Illness Initial Comments: 24 yo female with PMH of panic/anxiety disorder and marijuana abuse who presents with cc of feeling jittery. Reports she drank 4 energy drinks at work ([employer]) yesterday. Reports afterwards in the afternoon and evening having new onset sx's of jitteriness, chest pain, dyspnea, and nausea with several episodes of NBNB emesis. She went home and was able to sleep for approx 8 hours but woke up 30 mins ago with worsening again of jitteriness - reports shaking and spasms of her upper extremities mostly. She tried taking some of her Rx hydroxyzine for anxiety but no improvement. She also states she felt like she might pass out a few times as well so she came into the ED for evaluation. Reports mild dyspnea currently but no active chest pain, palpitations, abd pain, n/v/d, urinary sx's. LMP a few weeks ago. Admits to smoking marijuana "maybe a week ago" but denies any other drug abuse. Allergies/Adverse Reactions: Allergies Amoxicillin Allergy (Verified 08/15/19 09:26) Ceftriaxone [From Rocephin] Allergy (Verified 08/15/19 09:26) Home Medications: Ambulatory Orders Hydroxyzine HCl 25 mg PO TID PRN 01/17/19 Olanzapine 5 mg PO DAILY 01/17/19 Review of Systems - Review of Systems Review of Systems: 08/15/19 09:29 as per HPI All other Systems: Reviewed and Negative Past Medical History (General) - Patient Medical History Hx Seizures: No Hx Stroke: No Hx Dementia: No Hx Asthma: No Hx of COPD: No Hx Cardiac Disorders: No Hx Congestive Heart Failure: No Hx Pacemaker: No Hx Hypertension: No Hx Thyroid Disease: No Hx Diabetes: No Hx Gastroesophageal Reflux: No Hx Renal Disease: No Hx Cancer: No Hx of HIV: No Hx Hepatitis C: No Hx MRSA: No - Vaccination History Hx Tetanus, Diphtheria Vaccination: Yes Hx Influenza Vaccination: Yes Hx Pneumococcal Vaccination: No - Social History Hx Tobacco Use: Yes Hx Chewing Tobacco Use: No Hx Alcohol Use: Yes Hx Substance Use: Yes - marijuana Hx Substance Use Treatment: No Hx Depression: Yes Hx Physical Abuse: No Hx Emotional Abuse: No Hx Suspected Abuse: No - Female History Hx Last Menstrual Period: 04/02/19 Patient : Yes Expected Date of Delivery:: 06/17/16 Hx Gestational Age: 30 Family Medical History - Family History Mother Family History: Unknown Name: Missy Age (years): 48 Living Status: Still Living Hx Family Hypertension: Yes Hx Cardiac Disease: No Physical Exam - Physical Exam General Appearance: Alert, Anxious, No apparent distress, Unkempt, Other - pt noted to be resting comfortably but when I entered room she began trembling in her arms and hands Eye Exam: bilateral normal Ears, Nose, Throat: hearing grossly normal, normal ENT inspection, normal pharynx Neck: non-tender, full range of motion, supple, normal inspection Respiratory: lungs clear, normal breath sounds, no respiratory distress Cardiovascular/Chest: normal peripheral pulses, regular rate, rhythm, no edema, no gallop, no JVD, no murmur Gastrointestinal/Abdominal: non tender, soft, no organomegaly Back Exam: normal inspection, no CVA tenderness Extremity: normal range of motion, non-tender, normal inspection, no pedal micheal ma, no calf tenderness Neurologic: certifier II-XII nml as tested, no motor/sensory deficits, alert, normal mood/affect, oriented x 3 Skin Exam: normal color, warm/dry Progress - Progress Progress: 08/15/19 09:31 Near syncope -vague sx's, in setting of recent energy drink usage and marijuana abuse -suspect toxic vs malingering (was here 06/05 for similar sx's which resolved with Ativan at that time) most likely. Consider also electrolyte derangement vs cardiac vs vs other -obtain labs, UA, UDS, hcg -place PIV, 1 L NS bolus, telemetry 08/15/19 10:11 -Pt remains stable. States little change in sx's. Says she is feeling very anxious and believes the energy drinks have worsened her anxiety. She typically takes hydroxyzine PRN but has had any today. Will try hydroxyzine 25 mg PO here in ED. K is 3.1 - replenishing orally. Serum glucose is 69 - may also be contributing to acute sx's. Pt states she hasn't eaten anything yet today - will give a snack in ED and recheck fingerstick. 08/15/19 10:52 -D-stick >90. Pt feeling much better and asking to leave. Pt has not provided urine sample but remainder of labs unremarkable. Remains stable, will dc to home in good condition, return warnings discussed. F/u closely with PCP. Advised cessation of marijuana use and energy drinks. Jone Pastor MD Billing #[id number] - EKG/XRAY/CT EKG: Sinus - normal sinus rhythm, HR 80, no ST elevations or q waves present, axis normal, mild QT prolongation 483 msecs, compared to 06/05/19 EKG appears unchanged. XRAY: chest - no acute processes per my read Departure - Departure Clinical Impression: Anxiety, Hypokalemia due to inadequate potassium intake Time of Disposition: 10:55 Disposition: Discharge to Home or Self Care Condition: Good Departure Forms: ED Discharge - Pt. Copy, Patient Portal Self Enrollment Instructions: Anxiety, Adult (DC) Referrals: Libia Glass NP [Primary Care Provider] - 1-2 Weeks Home Medications: Ambulatory Orders Hydroxyzine HCl 25 mg PO TID PRN 01/17/19 Olanzapine 5 mg PO DAILY 01/17/19 Additional Instructions: Remain well-hydrated and advance diet and activity level as tolerated. I recommend you abstain from energy drink usage and marijuana as these can again worsen your symptoms. Caffeine, tobacco/nicotine, and other stimulants may also worsen symptoms of anxiety and jitteriness. Follow up closely with your primary care provider.
[2019-08-15] MEDS ORDERED: POTASSIUM CHLORIDE 20 MEQ TAB PO ONE (10:03)
[2019-08-15] MEDS ORDERED: hydrOXYzine HCl 25 MG TAB PO ONE (10:10)
--- NOTE | 2019-08-15 10:10 | RAD ---
EXAM DESCRIPTION: Chest,1 View x-ray CLINICAL HISTORY: 24 years Female, jittery, chest pain COMPARISON: Previous study November 14, 2017 TECHNIQUE: AP portable chest. FINDINGS: Heart size is normal with normal pulmonary vascularity. Mild reverse S shaped scoliotic curvature of the T-spine. Right hemidiaphragm is mildly elevated. No consolidating infiltrate. No pulmonary mass or worrisome nodule. No pneumothorax or pleural effusion. Bones are unremarkable. IMPRESSION: No acute process is identified in the chest. Electronically signed by: Juan Lei MD 08/15/2019 10:08 AM [facility]
[2019-08-15 11:12] VITALS: BP 105/67; O2SAT 99
== END 2019-08-15 11:12 | disposition home or self-care (01) ==
LOC: ER 09:06
DX: F41.9 Anxiety disorder, unspecified (principal); E87.6 Hypokalemia; R55 Syncope and collapse; F12.10 Cannabis abuse, uncomplicated; R11.2 Nausea with vomiting, unspecified; R07.9 Chest pain, unspecified; R06.00 Dyspnea, unspecified; F32.9 Major depressive disorder, single episode, unspecified; Z88.1 Allergy status to other antibiotic agents; Z87.891 Personal history of nicotine dependence
CPT/HCPCS: 36416; 71045; 80048; 80307; 81001; 81025; 82948; 84484; 85025; 93005; 94760; J7030

== ENCOUNTER 2019-09-20 04:22 | Observation (INO) | payer SELFPAY ==
[2019-09-20] MEDS ORDERED: SODIUM CHLORIDE 0.9% (FLUSH) 10 ML SYG IV PRN ×2 (04:23→21:55)
[2019-09-20] MEDS ORDERED: SODIUM CHLORIDE 0.9% 1000ML 1,000 ML IVS ONE (04:24)
--- NOTE | 2019-09-20 04:32 | ED.PDOC ---
History of Present Illness - General Chief Complaint: Drug or Alcohol Abuse Stated Complaint: Drug use Time Seen by Provider: 09/20/19 04:23 Source: patient, family - History of Present Illness Initial Comments: 24 yo female with PMH of drug abuse who is bib friends for cc of meth overdose. States up all night snorting and using IV meth. States "other people were injecting me. I thought it was meth." Friends at bedside state they were called by people she was with to come pick her up because she became very anxious. Here pt appears extremely anxious, cannot sit still, complains of spasms in arms and legs and severe anxiety, mild dyspnea, highly emotional. Appears acutely intoxicated. Reports hx of asthma. Denies abd pain, n/v/d, urinary sx's. Denies any alcohol, benzo, opioid, or other illicit substance abuse. Allergies/Adverse Reactions: Allergies Amoxicillin Allergy (Verified 09/20/19 04:35) Ceftriaxone [From Rocephin] Allergy (Verified 09/20/19 04:35) Home Medications: Ambulatory Orders Hydroxyzine HCl 25 mg PO TID PRN 01/17/19 RX: Olanzapine 10 mg PO DAILY 01/17/19 Review of Systems - Review of Systems Review of Systems: 09/20/19 04:32 as per HPI All other Systems: Reviewed and Negative Past Medical History (General) - Patient Medical History Hx Seizures: No Hx Stroke: No Hx Dementia: No Hx Asthma: No Hx of COPD: No Hx Cardiac Disorders: No Hx Congestive Heart Failure: No Hx Pacemaker: No Hx Hypertension: No Hx Thyroid Disease: No Hx Diabetes: No Hx Gastroesophageal Reflux: No Hx Renal Disease: No Hx Cancer: No Hx of HIV: No Hx Hepatitis C: No Hx MRSA: No - Vaccination History Hx Tetanus, Diphtheria Vaccination: Yes Hx Influenza Vaccination: Yes Hx Pneumococcal Vaccination: No - Social History Hx Tobacco Use: Yes Hx Chewing Tobacco Use: No Hx Alcohol Use: Yes Hx Substance Use: Yes - marijuana Hx Substance Use Treatment: No Hx Depression: Yes Hx Physical Abuse: No Hx Emotional Abuse: No Hx Suspected Abuse: No - Female History Hx Last Menstrual Period: 04/02/19 Patient : Yes Expected Date of Delivery:: 06/17/16 Hx Gestational Age: 30 Family Medical History - Family History Mother Family History: Unknown Name: Missy Age (years): 48 Living Status: Still Living Hx Family Hypertension: Yes Hx Cardiac Disease: No Physical Exam - Physical Exam General Appearance: Agitated, Alert, Anxious, Restless, Unkempt Eye Exam: bilateral other - Pupils dilated approx 5 mm equal BL, min reactive to light Ears, Nose, Throat: hearing grossly normal, normal ENT inspection, normal pharynx Neck: non-tender, full range of motion, supple, normal inspection Respiratory: lungs clear, normal breath sounds, no respiratory distress, no accessory muscle use Cardiovascular/Chest: normal peripheral pulses, no edema, no murmur, tachycardia Peripheral Pulses: radial,right: 2+, radial,left: 2+ Gastrointestinal/Abdominal: non tender, soft Back Exam: normal inspection, no CVA tenderness, no vertebral tenderness Extremity: normal range of motion, non-tender, normal inspection, no pedal edema, no calf tenderness Neurologic: steel heater II-XII nml as tested, no motor/sensory deficits, alert, oriented x 3 Skin Exam: normal color, warm/dry Progress - Progress Progress: 09/20/19 04:34 Acute methamphetamine intoxication -classic sx's, agitated, restless, anxious, tachycardic, dilated pupils on exam, airway/breathing/circulation intact -order stat labs, CXR, EKG, continuous tele monitoring -1 L NS bolus, Ativan 2 mg IV for agitation 09/20/19 05:51 -Pt remains severely anxious, Ativan with little to no effect. Nursing and lab staff unable to draw labs or place PIV for care. Will give Haldol 10 mg IM & Benadryl 50 mg IM 09/20/19 07:08 -Pt much calmer after Haldol & Benadryl - lab finally able to draw blood. Hand off given to Dr. Medellin at shift change to f/u results. Jone Pastor MD Billing #[id number] - EKG/XRAY/CT EKG: Sinus - NSR, HR 95, no ST elevations or q waves, axis & intervals normal, compared to 08/15/19 EKG QTc prolongation now resolved Departure - Departure Clinical Impression: Methamphetamine abuse Departure Forms: ED Discharge - Pt. Copy, Patient Portal Self Enrollment Referrals: Libia Glass NP [Primary Care Provider] - 1-2 Weeks Home Medications: Ambulatory Orders Hydroxyzine HCl 25 mg PO TID PRN 01/17/19 RX: Olanzapine 10 mg PO DAILY 01/17/19 Addendum entered and electronically signed by Thuy Medellin MD 09/20/19 14:29: Departure - Departure Clinical Impression: Methamphetamine abuse, Hypoxia Disposition: Admit Patient Condition: Fair Departure Forms: ED Discharge - Pt. Copy, Patient Portal Self Enrollment Referrals: Libia Glass CHRISTIAN COUNSELOR [Primary Care Provider] - 1-2 Weeks Home Medications: Ambulatory Orders Hydroxyzine HCl 25 mg PO TID PRN 01/17/19 Olanzapine 10 mg PO DAILY 01/17/19 ED Addendum - ED Addendum Addendum: 24 yo F who presents with meth intoxication, agitated and anxious on arrival, received ativan, benadryl, and haldol. After a 10 hour stay in the ED, pt is still sleepy, walks with unsteady gait, hypoxic to 88% on RA while sleeping. Pt refuses IV however wakes up to drink some water when asked and then will go right back to sleep. Has not provided a urine sample at this time. Will admit to medicine for observation. Thuy Medellin MD Emergency Medicine Physician Billing Number [id number]
[2019-09-20] MEDS ORDERED: HALOPERIDOL LACTATE INJ 5 MG/ML VIAL IM ONE (05:50)
[2019-09-20] MEDS ORDERED: diphenhydrAMINE HCL 50 MG/ML VIAL IM ONE (05:50)
--- NOTE | 2019-09-20 13:42 | CT ---
PROVIDED CLINICAL HISTORY/REASON FOR EXAM: ams TECHNIQUE: Volumetric CT data of the brain was obtained without intravenous contrast. This exam was performed according to our departmental dose-optimization program, which includes automated exposure control, adjustment of the mA and/or kV according to patient size and/or use of iterative reconstruction technique. COMPARISON: None available. FINDINGS: The ventricles and sulci are normal, without hydrocephalus or significant atrophy. Septum pellucidum and third ventricle are midline. No acute infarction is evident by CT. No acute hemorrhage is present. No mass or mass effect is present. The calvaria and soft tissues are unremarkable. Mucosal thickening in the ethmoid air cells. IMPRESSION: No acute intracranial abnormalities. Electronically signed by: Stanton Chiang MD 09/20/2019 1:41 PM TEACHING ARTIST
[2019-09-20] MEDS ORDERED: POTASSIUM CHLORIDE 20 MEQ TAB PO ONE (13:51)
[2019-09-20] MEDS ORDERED: ACETAMINOPHEN 325 MG TAB PO PRN (21:55)
[2019-09-20] MEDS ORDERED: IV SET AND CAP CHANGE INJ INJ SCH (22:00)
[2019-09-21 06:05] VITALS: TEMP 98.1
[2019-09-21 11:03] VITALS: BP 116/81; O2SAT 98
--- NOTE | 2019-09-22 20:16 | SSS ---
SUPERVISING PHYSICIAN: Manuel Lancaster M.D. DISCHARGE DIAGNOSES: 1. Methamphetamine overdose. 2. History of drug abuse. 3. Tobacco abuse. HISTORY OF PRESENT ILLNESS: This is a 24 year-old female patient with a past medical history of drug abuse. She came to the Emergency Room with complaints of a methamphetamine overdose. She had been up all night snorting methamphetamines and using IV methamphetamines. She states, "Other people were injecting me. I thought it was meth." Friends brought her to the Emergency Room because she became quite anxious. In the Emergency Room, she was restless, agitated with dilated pupils. Her initial vital signs showed a temperature 97.4, heart rate 97, blood pressure 111/77, respiratory rate 24, O2 saturation 98% on room air. Laboratory was done. Her CBC showed a slightly elevated white count of 13,600. The remainder of the CBC was unremarkable. CBC showed potassium was low at 2.9, sodium 132, creatinine kinase 361. Urinalysis showed 40 urine ketones and a large amount of urine blood. She also showed urine trichomonas. Drug screen was positive for methamphetamines, positive for Benzodiazepines and positive for cannabinoids. She was given Lorazepam, Haldol and potassium chloride. Head CT showed ventricles and sulci are normal without hydrocephalus or significant atrophy. Septum pellucidum and third ventricle are midline. No acute infarct is evident by CT. No acute hemorrhage is present. No mass or mass effect is present. The calvaria and soft tissues are unremarkable. Mucosal thickening in the ethmoid air cells. Because the patient was still coming down off her methamphetamines, she was continued on an extended stay ER. PAST MEDICAL HISTORY: 1. Drug abuse. PAST SURGICAL HISTORY: Unknown. CURRENT MEDICATIONS: ALLERGIES: FAMILY HISTORY: SOCIAL HISTORY: REVIEW OF SYSTEMS: PHYSICAL EXAMINATION: VITAL SIGNS: GENERAL: HEENT: NECK: CHEST: CARDIOVASCULAR: ABDOMEN: EXTREMITIES: NEUROLOGIC: RECTAL: ASSESSMENT: PLAN: #[id number] MTDD
== END 2019-09-21 13:00 | disposition home or self-care (01) ==
LOC: ER 04:22 → MS 15:33
PROVIDERS: ADMIT Nurse Practitioner Family; ATTEND Nurse Practitioner Acute Care
DX: T43.621A Poisoning by amphetamines, accidental (unintentional), initial encounter (principal); F15.129 Other stimulant abuse with intoxication, unspecified; F41.9 Anxiety disorder, unspecified; R09.02 Hypoxemia; D72.829 Elevated white blood cell count, unspecified; E87.6 Hypokalemia; A59.00 Urogenital trichomoniasis, unspecified; F12.10 Cannabis abuse, uncomplicated; F19.10 Other psychoactive substance abuse, uncomplicated; F17.200 Nicotine dependence, unspecified, uncomplicated; Z79.899 Other long term (current) drug therapy; Z88.0 Allergy status to penicillin; Z88.1 Allergy status to other antibiotic agents
CPT/HCPCS: 96372; J1200; J1630; J2060; 80329 ×2; 80053; 80307; 36415 ×3; 81001; 84702; 85025; 82550; 80320; 85730; 85610; 84484; 70450; 99285; 93005; G0378

== ENCOUNTER 2019-09-26 17:00 | Emergency (ER) | payer SELFPAY ==
[2019-09-26] MEDS ORDERED: hydrOXYzine HCl 25 MG TAB PO ONE (17:04)
[2019-09-26] MEDS ORDERED: SULFA/TRIMETH 800/160 (DS) TAB 1 EA TAB PO ONE (17:13)
--- NOTE | 2019-09-26 17:16 | ED.PDOC ---
History of Present Illness - General Time Seen by Provider: 09/26/19 17:04 Source: patient Exam Limitations: no limitations - History of Present Illness Initial Comments: the patient's 24-year-old female presenting to emergency room secondary to panic attack. She has run out of her hydroxyzine. Additionally she has a small nodule to her left forearm as well as a mild blister to her left distal cornelius that do appear to be localized cellulitis and a small abscess. No fever. No chest pain. She has had multiple panic attacks in the past. She denies any drug use since last week. No chest pain. She does have shortness of breath with her panic attacks. She is pleasant and cooperative now. Timing/Duration: 1/2 hour Severity: moderate Improving Factors: nothing Worsening Factors: nothing Associated Symptoms: malaise, shortness of breath Allergies/Adverse Reactions: Allergies Amoxicillin Allergy (Verified 09/20/19 04:35) Ceftriaxone [From Rocephin] Allergy (Verified 09/20/19 04:35) Home Medications: Ambulatory Orders Hydroxyzine HCl 25 mg PO TID PRN 01/17/19 Olanzapine 10 mg PO DAILY 01/17/19 Hydroxyzine HCl 25 mg PO BID PRN #20 tab 09/26/19 Sulfa/Trimeth 800/160 (Ds) Tab [Bactrim DS Tab] 1 ea PO BID #14 tab 09/26/19 Review of Systems - Review of Systems Constitutional: States: malaise EENTM: States: no symptoms reported Respiratory: States: short of breath - with her panic attacks Cardiology: States: no symptoms reported Gastrointestinal/Abdominal: States: no symptoms reported Genitourinary: States: no symptoms reported Musculoskeletal: States: no symptoms reported Skin: States: see HPI Neurological: States: anxiety Endocrine: States: no symptoms reported All other Systems: No Change from Baseline Past Medical History (General) - Patient Medical History Hx Seizures: No Hx Stroke: No Hx Dementia: No Hx Asthma: No Hx of COPD: No Hx Cardiac Disorders: No Hx Congestive Heart Failure: No Hx Pacemaker: No Hx Hypertension: No Hx Thyroid Disease: No Hx Diabetes: No Hx Gastroesophageal Reflux: No Hx Renal Disease: No Hx Cancer: No Hx of HIV: No Hx Hepatitis C: No Hx MRSA: No - Vaccination History Hx Tetanus, Diphtheria Vaccination: Yes Hx Influenza Vaccination: Yes Hx Pneumococcal Vaccination: No - Social History Hx Tobacco Use: Yes Hx Chewing Tobacco Use: No Hx Alcohol Use: No Hx Substance Use: Yes - marijuana Hx Substance Use Treatment: No Hx Depression: Yes Hx Physical Abuse: No Hx Emotional Abuse: No Hx Suspected Abuse: No - Female History Hx Last Menstrual Period: 04/02/19 Patient : Yes Expected Date of Delivery:: 06/17/16 Hx Gestational Age: 30 Family Medical History - Family History Mother Family History: Unknown Name: Missy Age (years): 48 Living Status: Still Living Hx Family Hypertension: Yes Hx Cardiac Disease: No Physical Exam - Physical Exam General Appearance: Alert, Anxious Eye Exam: bilateral normal Ears, Nose, Throat: hearing grossly normal, normal ENT inspection Neck: full range of motion, supple Respiratory: lungs clear, normal breath sounds, no respiratory distress, no accessory muscle use Cardiovascular/Chest: normal peripheral pulses, regular rate, rhythm, no edema Peripheral Pulses: radial,right: 2+, radial,left: 2+ Gastrointestinal/Abdominal: non tender, soft Rectal Exam: deferred Extremity: normal range of motion, no pedal edema, normal capillary refill Neurologic: customs examiner II-XII nml as tested, alert, normal mood/affect - anxious, oriented x 3 Skin Exam: normal color - small blister to the distal left cornelius. Nodule to the left forearm. Progress - Progress Progress: 09/26/19 17:17 the patient's 24-year-old female presenting to the emergency room secondary to an anxiety attack. She was given a dose of hydroxyzine and will be written for a short prescription of this medication for as needed use. Additionally the patient has a small left forearm abscess which was drained with a needle. This is being cultured. She also has small amount of cellulitis to the left anterior cornelius. The patient be placed on Bactrim twice daily for the next 7 days for these 2 problems. She needs to follow back up with her primary care doctor in 5 or 6 days. ER warnings are given for any acute worsening. [email or web address] [id number] Departure - Departure Clinical Impression: Panic attack Abscess of skin Qualifiers: Site of cutaneous abscess: extremity Site of cutaneous abscess of extremity: upper extremity Laterality: left Qualified Code(s): L02.414 - Cutaneous abscess of left upper limb Disposition: Discharge to Home or Self Care Condition: Fair Instructions: Panic Disorder, Boil (DC) Diet: regular diet Activity: increase activity as tolerated Referrals: Libia Glass NP [Primary Care Provider] - 1-2 Weeks Prescriptions: Hydroxyzine HCl 25 mg PO BID PRN #20 tab PRN Reason: Anxiety Sulfa/Trimeth 800/160 (Ds) Tab [Bactrim DS Tab] 1 ea PO BID #14 tab Home Medications: Ambulatory Orders Hydroxyzine HCl 25 mg PO TID PRN 01/17/19 Olanzapine 10 mg PO DAILY 01/17/19 Hydroxyzine HCl 25 mg PO BID PRN #20 tab 09/26/19 Sulfa/Trimeth 800/160 (Ds) Tab [Bactrim DS Tab] 1 ea PO BID #14 tab 09/26/19 Additional Instructions: the patient's 24-year-old female presenting to the emergency room secondary to an anxiety attack. She was given a dose of hydroxyzine and will be written for a short prescription of this medication for as needed use. Additionally the patient has a small left forearm abscess which was drained with a needle. This is being cultured. She also has small amount of cellulitis to the left anterior cornelius. The patient be placed on Bactrim twice daily for the next 7 days for these 2 problems. She needs to follow back up with her primary care doctor in 5 or 6 days. ER warnings are given for any acute worsening.
[2019-09-26 17:24] VITALS: BP 116/64; TEMP 98.9; O2SAT 97
== END 2019-09-26 17:32 | disposition home or self-care (01) ==
LOC: ER 17:00
DX: F41.0 Panic disorder [episodic paroxysmal anxiety] (principal); L02.414 Cutaneous abscess of left upper limb; L03.116 Cellulitis of left lower limb; F32.9 Major depressive disorder, single episode, unspecified; Z88.1 Allergy status to other antibiotic agents; Z87.891 Personal history of nicotine dependence

== ENCOUNTER 2019-12-12 12:10 | Emergency (ER) | payer SELFPAY ==
--- NOTE | 2019-12-12 12:32 | ED.PDOC ---
History of Present Illness - General Time Seen by Provider: 12/12/19 12:30 Source: patient - History of Present Illness Initial Comments: 24 yo female who presents with cc of nausea and missed menstrual period. LMP began on 10/24/19. Reports this week began having intermittent nausea and occasional NBNB emesis at home. Reports moderate severity. Also having nipple tenderness. She reports similar sx's in her first 2 pregnancies and is worried she is . Denies any fevers, chills, abd pain, diarrhea, urinary sx's, vaginal bleeding/discharge. No meds taken at home for relief. Allergies/Adverse Reactions: Allergies Amoxicillin Allergy (Verified 12/12/19 12:44) Ceftriaxone [From Rocephin] Allergy (Verified 12/12/19 12:44) Home Medications: Ambulatory Orders Hydroxyzine HCl 25 mg PO TID PRN 01/17/19 Olanzapine 10 mg PO DAILY 01/17/19 Hydroxyzine HCl 25 mg PO BID PRN #20 tab 09/26/19 Sulfa/Trimeth 800/160 (Ds) Tab [Bactrim DS Tab] 1 ea PO BID #14 tab 09/26/19 Ondansetron Odt [Zofran ODT] 8 mg PO Q8H PRN 30 Days #15 tab 12/12/19 Review of Systems - Review of Systems Review of Systems: 12/12/19 14:40 as per HPI All other Systems: Reviewed and Negative Past Medical History (General) - Patient Medical History Hx Seizures: No Hx Stroke: No Hx Dementia: No Hx Asthma: No Hx of COPD: No Hx Cardiac Disorders: No Hx Congestive Heart Failure: No Hx Pacemaker: No Hx Hypertension: No Hx Thyroid Disease: No Hx Diabetes: No Hx Gastroesophageal Reflux: No Hx Renal Disease: No Hx Cancer: No Hx of HIV: No Hx Hepatitis C: No Hx MRSA: No - Vaccination History Hx Tetanus, Diphtheria Vaccination: Yes Hx Influenza Vaccination: Yes Hx Pneumococcal Vaccination: No - Social History Hx Tobacco Use: Yes Hx Chewing Tobacco Use: No Hx Alcohol Use: No Hx Substance Use: Yes - marijuana Hx Substance Use Treatment: No Hx Depression: Yes Hx Physical Abuse: No Hx Emotional Abuse: No Hx Suspected Abuse: No - Female History Hx Last Menstrual Period: 04/02/19 Patient : Yes Expected Date of Delivery:: 06/17/16 Hx Gestational Age: 30 Family Medical History - Family History Mother Family History: Unknown Name: Missy Age (years): 48 Living Status: Still Living Hx Family Hypertension: Yes Hx Cardiac Disease: No Physical Exam - Physical Exam General Appearance: Alert, Comfortable, No apparent distress Eye Exam: bilateral normal Ears, Nose, Throat: hearing grossly normal, normal ENT inspection, normal pharynx Neck: non-tender, full range of motion, supple, normal inspection Respiratory: chest non-tender, lungs clear, normal breath sounds, no respiratory distress, no accessory muscle use Cardiovascular/Chest: normal peripheral pulses, regular rate, rhythm, no edema, no gallop, no JVD, no murmur Peripheral Pulses: radial,right: 2+, radial,left: 2+ Gastrointestinal/Abdominal: non tender, soft, no organomegaly Back Exam: normal inspection, no CVA tenderness, no vertebral tenderness Extremity: normal range of motion, non-tender, normal inspection, no pedal edema, no calf tenderness Neurologic: no motor/sensory deficits, alert, normal mood/affect, oriented x 3 Skin Exam: normal color, warm/dry Progress - Progress Progress: 12/12/19 12:41 Nausea, missed period -suspect most likely. Consider electrolyte derangement, iatrogenic, drug use, other -check labs, test 12/12/19 14:42 -Serum hcg is positive. Remainder of labs unremarkable. -discussed diagnosis of IUP with pt - advised daily PNV and close f/u with Ob for initial visit -dc home in good condition Jone Pastor MD Billing #[id number] 12/12/19 12:31 URINALYSIS Stat Laboratory Results - last 24 hr 12/12/19 12/12/19 12/12/19 12:39 12:39 12:39 WBC 10.4 RBC 4.69 Hgb 13.8 Hct 41.1 MCV 87.5 MCH 29.5 MCHC 33.7 RDW 14.3 Plt Count 268 MPV 7.9 Absolute Neuts (auto) 7.20 H Absolute Lymphs (auto) 2.20 Absolute Monos (auto) 0.60 Absolute Eos (auto) 0.30 Absolute Basos (auto) 0.10 Neutrophils % 69.4 Lymphocytes % 21.0 Monocytes % 5.6 Eosinophils % 3.4 Basophils % 0.6 Sodium 135 Potassium 3.8 Chloride 104 Carbon Dioxide 23 Anion Gap 11.8 L BUN < 5 L Creatinine 0.66 BUN/Creatinine Ratio 7.6 L Random Glucose 95 Serum Osmolality 267.2 L Calcium 9.0 Total Bilirubin 0.5 AST 12 ALT < 8 L Alkaline Phosphatase 45 Serum Total Protein 7.4 Albumin 4.1 Globulin 3.3 Albumin/Globulin Ratio 1.2 Serum HCG, Qual Positive Urine HCG, Qual Cancelled Departure - Departure Clinical Impression: Morning sickness Qualifiers: Weeks of gestation: less than 8 weeks Qualified Code(s): Z3A.01 - Less than 8 weeks gestation of Time of Disposition: 14:35 Disposition: Discharge to Home or Self Care Condition: Good Instructions: Morning Sickness (DC) Diet: regular diet Referrals: Libia Glass NP [Primary Care Provider] - 1-2 Weeks Prescriptions: Ondansetron Odt [Zofran ODT] 8 mg PO Q8H PRN 30 Days #15 tab PRN Reason: Nausea Home Medications: Ambulatory Orders Hydroxyzine HCl 25 mg PO TID PRN 01/17/19 Olanzapine 10 mg PO DAILY 01/17/19 Hydroxyzine HCl 25 mg PO BID PRN #20 tab 09/26/19 Sulfa/Trimeth 800/160 (Ds) Tab [Bactrim DS Tab] 1 ea PO BID #14 tab 09/26/19 Ondansetron Odt [Zofran ODT] 8 mg PO Q8H PRN 30 Days #15 tab 12/12/19 Additional Instructions: Follow up with your tug captain to establish care for your in next 1-2 weeks. Do not use tobacco, alcohol, or illicit drugs which could be harmful to your baby. Take a daily vitamin.
[2019-12-12 15:11] VITALS: BP 118/74; TEMP 98.2; O2SAT 98
== END 2019-12-12 15:13 | disposition home or self-care (01) ==
LOC: ER 12:10
DX: O21.8 Other vomiting complicating pregnancy (principal); O99.341 Other mental disorders complicating pregnancy, first trimester; F32.9 Major depressive disorder, single episode, unspecified; Z3A.01 Less than 8 weeks gestation of pregnancy; Z32.01 Encounter for pregnancy test, result positive; Z87.891 Personal history of nicotine dependence; Z88.1 Allergy status to other antibiotic agents; Z79.899 Other long term (current) drug therapy

== ENCOUNTER 2020-01-15 21:18 | Emergency (ER) | payer OTHER ==
[2020-01-15] MEDS ORDERED: ACETAMINOPHEN 500 MG TAB PO ONE (21:26)
[2020-01-15 21:36] VITALS: TEMP 99
--- NOTE | 2020-01-15 21:40 | ED.PDOC ---
History of Present Illness - General Chief Complaint: MARKETING DATABASE ANALYST Problem Time Seen by Provider: 01/15/20 21:26 Source: patient Exam Limitations: no limitations - History of Present Illness Initial Comments: 24 yo F who is who is 12 weeks (LMP Oct 24) presents for lower abd cramping onset 1500 today, states she feels like they are leonel clemens but they have not resolved. Associated light red vaginal spotting. Hx of meth abuse. Pts MARKETING DATABASE ANALYST is in [place]. Has only had one appointment a month ago, has not had an US during this . Denies f/c, cough, congestion, CP, SOB, n/v/d, vaginal discharge, urinary sx. Allergies/Adverse Reactions: Allergies Amoxicillin Allergy (Verified 01/15/20 21:36) Ceftriaxone [From Rocephin] Allergy (Verified 01/15/20 21:36) Home Medications: Ambulatory Orders RX: Hydroxyzine HCl 25 mg PO TID PRN 01/17/19 RX: Olanzapine 10 mg PO DAILY 01/17/19 RX: Hydroxyzine HCl 25 mg PO BID PRN #20 tab 09/26/19 Sulfa/Trimeth 800/160 (Ds) Tab [Bactrim DS Tab] 1 ea PO BID #14 tab 09/26/19 Ondansetron Odt [Zofran ODT] 8 mg PO Q8H PRN 30 Days #15 tab 12/12/19 Review of Systems - Review of Systems Constitutional: Denies: chills, fever EENTM: Denies: nose congestion, throat pain Respiratory: Denies: cough, short of breath Cardiology: Denies: chest pain, palpitations, syncope Gastrointestinal/Abdominal: States: abdominal pain - lower, cramping. Denies: constipation, diarrhea, nausea Genitourinary: States: other - vaginal spotting. Denies: dysuria, frequency, hematuria Musculoskeletal: Denies: back pain, neck pain Skin: Denies: lesions, rash Neurological: Denies: headache, numbness, weakness Past Medical History (General) - Patient Medical History Hx Seizures: No Hx Stroke: No Hx Dementia: No Hx Asthma: No Hx of COPD: No Hx Cardiac Disorders: No Hx Congestive Heart Failure: No Hx Pacemaker: No Hx Hypertension: No Hx Thyroid Disease: No Hx Diabetes: No Hx Gastroesophageal Reflux: No Hx Renal Disease: No Hx Cancer: No Hx of HIV: No Hx Hepatitis C: No Hx MRSA: No - Vaccination History Hx Tetanus, Diphtheria Vaccination: Yes Hx Influenza Vaccination: Yes Hx Pneumococcal Vaccination: No - Social History Hx Tobacco Use: Yes Hx Chewing Tobacco Use: No Hx Alcohol Use: No Hx Substance Use: Yes - marijuana Hx Substance Use Treatment: No Hx Depression: Yes Hx Physical Abuse: No Hx Emotional Abuse: No Hx Suspected Abuse: No - Female History Hx Last Menstrual Period: 04/02/19 Patient : Yes Expected Date of Delivery:: 06/17/16 Hx Gestational Age: 30 Family Medical History - Family History Mother Family History: Unknown Name: Missy Age (years): 48 Living Status: Still Living Hx Family Hypertension: Yes Hx Cardiac Disease: No Physical Exam - Physical Exam General Appearance: Alert, Well Developed, Well Nourished, Other - Sitting in lithotomy position, reports severe cramps Eye Exam: bilateral normal Ears, Nose, Throat: normal ENT inspection Neck: full range of motion, supple Respiratory: chest non-tender, lungs clear, normal breath sounds, no respiratory distress, no accessory muscle use Cardiovascular/Chest: normal peripheral pulses, no edema, no gallop, no JVD, other - mild tachycardia Gastrointestinal/Abdominal: non tender, soft, other - Gravid uterus just below umbilicus. No guarding, rebound, distention. External exam; no vag bleeding, no . Extremity: normal range of motion, non-tender, normal inspection, no pedal edema, no calf tenderness, normal capillary refill, pelvis stable Neurologic: no motor/sensory deficits, alert, normal mood/affect, oriented x 3 Skin Exam: normal color, warm/dry Progress - Progress Progress: 01/15/20 21:35 Pt accepted to [place] by her MARKETING DATABASE ANALYST, Dr. Lester. 01/15/20 21:42 heart tones 149-156 per RN. 01/15/20 22:15 Transport to arrive in 30 min. RH blood type pending. Pt still having pain but does appear overly anxious over sx, will give dose of Benadryl. Thuy Medellin MD Emergency Medicine Physician Billing Number [id number] - Results/Orders Results/Orders: 01/15/20 21:33 Urine Culture Stat 01/15/20 22:02 URINALYSIS Stat Laboratory Results - last 24 hr 01/15/20 01/15/20 01/15/20 21:30 21:30 21:30 WBC 12.1 H RBC 4.96 Hgb 14.6 Hct 42.9 MCV 86.6 MCH 29.4 MCHC 33.9 RDW 13.5 Plt Count 268 MPV 8.1 Absolute Neuts (auto) 8.50 H Absolute Lymphs (auto) 2.40 Absolute Monos (auto) 0.90 H Absolute Eos (auto) 0.20 Absolute Basos (auto) 0.10 Neutrophils % 70.1 Lymphocytes % 20.0 Monocytes % 7.5 Eosinophils % 1.7 Basophils % 0.7 Sodium 136 Potassium 3.3 L Chloride 109 Carbon Dioxide 18 L Anion Gap 12.3 BUN 9 Creatinine 0.61 BUN/Creatinine Ratio 14.8 Random Glucose 91 Serum Osmolality 270.2 L Calcium 9.2 Total Bilirubin 0.8 AST 19 ALT 21 Alkaline Phosphatase 38 L Serum Total Protein 7.8 Albumin 4.6 Globulin 3.2 Albumin/Globulin Ratio 1.4 Beta HCG, Quant > 1350.0 H Urine Color Urine Appearance Urine pH Ur Specific [place] Urine Protein Urine Glucose (UA) Urine Ketones Urine Blood Urine Nitrite Urine Bilirubin Urine Urobilinogen Ur Leukocyte Esterase Urine RBC Urine WBC Ur Epithelial Cells Urine Bacteria Patient ABO/Rh AB POSITIVE 01/15/20 21:33 WBC RBC Hgb Hct MCV MCH MCHC RDW Plt Count MPV Absolute Neuts (auto) Absolute Lymphs (auto) Absolute Monos (auto) Absolute Eos (auto) Absolute Basos (auto) Neutrophils % Lymphocytes % Monocytes % Eosinophils % Basophils % Sodium Potassium Chloride Carbon Dioxide Anion Gap BUN Creatinine BUN/Creatinine Ratio Random Glucose Serum Osmolality Calcium Total Bilirubin AST ALT Alkaline Phosphatase Serum Total Protein Albumin Globulin Albumin/Globulin Ratio Beta HCG, Quant Urine Color Dk yellow H Urine Appearance Sl cloudy Urine pH 7.5 Ur Specific [place] 1.025 Urine Protein 30 Urine Glucose (UA) Negative Urine Ketones 15 H Urine Blood Trace-intact H Urine Nitrite Negative Urine Bilirubin Small H Urine Urobilinogen 1.0 Ur Leukocyte Esterase Small H Urine RBC 1-3 Urine WBC 5-10 H Ur Epithelial Cells 5-10 Urine Bacteria Rare Patient ABO/Rh Vital Signs - 24 hr 01/15/20 01/15/20 21:19 22:03 Temperature 99.0 F Pulse Rate [ 97 H 108 H monitor] Respiratory 20 22 Rate Blood Pressure 130/103 134/87 [Left Arm] O2 Sat by Pulse 97 98 Oximetry Departure - Departure Clinical Impression: Bilateral lower abdominal cramping, Vaginal spotting Qualifiers: Weeks of gestation: unspecified Qualified Code(s): Z34.90 - Encounter for supervision of normal , unspecified, unspecified trimester Time of Disposition: 21:48 Disposition: Transfer to Hospital Condition: Fair Home Medications: Ambulatory Orders RX: Hydroxyzine HCl 25 mg PO TID PRN 01/17/19 RX: Olanzapine 10 mg PO DAILY 01/17/19 RX: Hydroxyzine HCl 25 mg PO BID PRN #20 tab 09/26/19 Sulfa/Trimeth 800/160 (Ds) Tab [Bactrim DS Tab] 1 ea PO BID #14 tab 09/26/19 Ondansetron Odt [Zofran ODT] 8 mg PO Q8H PRN 30 Days #15 tab 12/12/19
[2020-01-15] MEDS ORDERED: diphenhydrAMINE HCL 50 MG/ML VIAL IV ONE (22:20)
[2020-01-15] MEDS ORDERED: SODIUM CHLORIDE 0.9% 500ML 500 ML IVS ONE (22:26)
[2020-01-15 23:01] VITALS: BP 103/89; O2SAT 100
== END 2020-01-15 23:10 | disposition short-term general hospital (02) ==
LOC: ER 21:18
DX: O26.851 Spotting complicating pregnancy, first trimester (principal); O26.891 Other specified pregnancy related conditions, first trimester; O99.331 Smoking (tobacco) complicating pregnancy, first trimester; R10.30 Lower abdominal pain, unspecified; Z3A.12 12 weeks gestation of pregnancy; F17.210 Nicotine dependence, cigarettes, uncomplicated
CPT/HCPCS: 80053; 80307; 81001; 84702; 85025; 86901; 87086; J1200; J7040

== ENCOUNTER 2020-02-12 09:36 | Emergency (ER) | payer OTHER ==
[2020-02-12] MEDS ORDERED: PROMETHAZINE HCL INJ 25 MG in SODIUM CHLORIDE 0.9% 50ML 50 ML IVPB ONE (09:45)
[2020-02-12] MEDS ORDERED: SODIUM CHLORIDE 0.9% 1000ML 1,000 ML IVS ONE ×2 (09:45→11:07)
[2020-02-12] MEDS ORDERED: PROMETHAZINE HCL INJ 25 MG/ML VIAL ONE (10:02)
[2020-02-12] MEDS ORDERED: SODIUM CHLORIDE 0.9% 50ML 50 ML ONE (10:03)
[2020-02-12] MEDS ORDERED: ACETAMINOPHEN 500 MG TAB ONE (10:55)
[2020-02-12] MEDS ORDERED: ACETAMINOPHEN 500 MG TAB PO ONE (10:59)
[2020-02-12 11:31] VITALS: TEMP 98.3
[2020-02-12 13:12] VITALS: BP 104/70; O2SAT 99
--- NOTE | 2020-02-12 13:31 | ED.PDOC ---
History of Present Illness - General Chief Complaint: GI Problem Time Seen by Provider: 02/12/20 09:41 Source: patient Exam Limitations: no limitations - History of Present Illness Initial Comments: The patient is a 24-year-old female presented emergency room secondary to nausea vomiting starting around 3-4 this morning. The patient is approximately 4 months and did have some significant nausea vomiting earlier in the . No real abdominal pain. No vomiting of blood. No diarrhea. No fever. No syncope or near syncope. 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 No chest pain or shortness of breath. 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 Timing/Duration: 4-6 hours Severity: moderate Improving Factors: nothing Worsening Factors: nothing Associated Symptoms: loss of appetite, malaise, nausea/vomiting Allergies/Adverse Reactions: Allergies Amoxicillin Allergy (Verified 01/15/20 21:36) Ceftriaxone [From Rocephin] Allergy (Verified 01/15/20 21:36) Home Medications: Ambulatory Orders Ondansetron Odt [Zofran ODT] 8 mg PO Q8H PRN 30 Days #15 tab 12/12/19 Buspirone HCl [Buspirone Hydrochloride] 7.5 mg PO BID 02/12/20 Famotidine 20 mg PO DAILY #14 tab 02/12/20 Ondansetron Odt [Zofran ODT] 4 mg PO Q8HR PRN #5 tab 02/12/20 Sertraline HCl [Zoloft] 50 mg PO DAILY 02/12/20 Review of Systems - Review of Systems Constitutional: States: malaise EENTM: States: no symptoms reported Respiratory: States: no symptoms reported Cardiology: States: no symptoms reported Gastrointestinal/Abdominal: States: nausea, vomiting Genitourinary: States: no symptoms reported Musculoskeletal: States: no symptoms reported Skin: States: no symptoms reported Neurological: States: no symptoms reported Endocrine: States: no symptoms reported All other Systems: No Change from Baseline Past Medical History (General) - Patient Medical History Hx Seizures: No Hx Stroke: No Hx Dementia: No Hx Asthma: No Hx of COPD: No Hx Cardiac Disorders: No Hx Congestive Heart Failure: No Hx Pacemaker: No Hx Hypertension: No Hx Thyroid Disease: No Hx Diabetes: No Hx Gastroesophageal Reflux: No Hx Renal Disease: No Hx Cancer: No Hx of HIV: No Hx Hepatitis C: No Hx MRSA: No Surgical History: no surgical history - Vaccination History Hx Tetanus, Diphtheria Vaccination: Yes Hx Influenza Vaccination: Yes Hx Pneumococcal Vaccination: No - Social History Hx Tobacco Use: Yes Hx Chewing Tobacco Use: No Hx Alcohol Use: No Hx Substance Use: Yes - marijuana, meth Hx Substance Use Treatment: No Hx Depression: Yes Hx Physical Abuse: No Hx Emotional Abuse: No Hx Suspected Abuse: No - Female History Patient is a Female of Child Bearing Age (10 -59 yrs old): Yes Hx Last Menstrual Period: 04/02/19 Patient : Yes Expected Date of Delivery:: 06/17/16 Hx Gestational Age: 30 Family Medical History - Family History Mother Family History: Unknown Name: Missy Age (years): 48 Living Status: Still Living Hx Family Hypertension: Yes Hx Cardiac Disease: No Physical Exam - Physical Exam General Appearance: Other - The patient is drowsy. Eye Exam: bilateral normal Ears, Nose, Throat: hearing grossly normal, normal ENT inspection Neck: full range of motion, supple Respiratory: lungs clear, normal breath sounds, no respiratory distress, no accessory muscle use Cardiovascular/Chest: normal peripheral pulses, regular rate, rhythm, no edema Peripheral Pulses: radial,right: 2+, radial,left: 2+ Gastrointestinal/Abdominal: non tender, soft - Fundus is just below the umbilicus. heart tones are in the 140s. 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, alert, normal mood/affect, oriented x 3 Skin Exam: normal color Comments: Vital Signs - 24 hr 02/12/20 02/12/20 02/12/20 09:49 11:00 11:30 Temperature 96.6 F L 98.3 F Pulse Rate [ 78 63 63 right brachial] Respiratory 20 22 20 Rate Blood Pressure 90/57 81/63 128/82 [right brachial ] O2 Sat by Pulse 98 99 98 Oximetry 02/12/20 02/12/20 12:00 13:00 Temperature Pulse Rate [ 76 96 H right brachial] Respiratory 18 16 Rate Blood Pressure 88/61 104/70 [right brachial ] O2 Sat by Pulse 96 99 Oximetry Progress - Progress Progress: 02/12/20 13:32 The patient is a 24-year-old female presented emergency room with nausea and vomiting since early hours of this morning. Symptoms are controlled with Phenergan here and the patient received 2 L of IV fluid. She will be written for Zofran for as needed use. She has had nausea and vomiting with her pregnancies in the past. 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 Obviously she needs to stay away from any substance abuse. ER warnings are given. Keep follow-up with Dr. Lester this coming week. antonella richards [phone] - Results/Orders Results/Orders: Laboratory Tests 02/12/20 02/12/20 02/12/20 09:46 09:48 09:56 WBC RBC Hgb Hct MCV MCH MCHC RDW Plt Count MPV Absolute Neuts (auto) Absolute Lymphs (auto) Absolute Monos (auto) Absolute Eos (auto) Absolute Basos (auto) Neutrophils % Lymphocytes % Monocytes % Eosinophils % Basophils % Sodium 135 Potassium 3.8 Chloride 103 Carbon Dioxide 25 Anion Gap 10.8 L BUN 6 L Creatinine 0.51 L BUN/Creatinine Ratio 11.8 Random Glucose 95 Serum Osmolality 267.5 L Calcium 8.3 L Magnesium Total Bilirubin 0.4 AST 15 ALT 21 Alkaline Phosphatase 54 Creatine Kinase 46 CK-MB (CK-2) 1.5 CK-MB (CK-2) % Not Reportable Troponin I < 0.02 Serum Total Protein 7.2 Albumin 3.5 Globulin 3.7 H Albumin/Globulin Ratio 0.9 L Amylase 84 Lipase Urine Color Yellow Urine Appearance Sl cloudy Urine pH 7.5 Ur Specific [place] 1.020 Urine Protein 30 Urine Glucose (UA) Negative Urine Ketones Negative Urine Blood Negative Urine Nitrite Negative Urine Bilirubin Negative Urine Urobilinogen 0.2 Ur Leukocyte Esterase Trace H Urine RBC 0 Urine WBC 3-5 H Ur Epithelial Cells 5-10 Urine Bacteria 1+ Urine Opiates Screen Negative Urine Barbiturates Negative Ur Phencyclidine Scrn Negative U Amphetamin/Meth Scrn Positive H U Benzodiazepines Scrn Negative U Cocaine Metab Screen Negative U Cannabinoids Screen Positive H 02/12/20 02/12/20 09:56 09:56 WBC 11.4 H RBC 4.83 Hgb 14.0 Hct 41.8 MCV 86.5 MCH 29.1 MCHC 33.6 RDW 13.3 Plt Count 201 MPV 8.3 Absolute Neuts (auto) 8.60 H Absolute Lymphs (auto) 1.90 Absolute Monos (auto) 0.60 Absolute Eos (auto) 0.20 Absolute Basos (auto) 0.00 Neutrophils % 75.9 Lymphocytes % 16.8 L Monocytes % 4.8 Eosinophils % 2.1 Basophils % 0.4 Sodium Potassium Chloride Carbon Dioxide Anion Gap BUN Creatinine BUN/Creatinine Ratio Random Glucose Serum Osmolality Calcium Magnesium 1.7 L Total Bilirubin AST ALT Alkaline Phosphatase Creatine Kinase CK-MB (CK-2) CK-MB (CK-2) % Troponin I Serum Total Protein Albumin Globulin Albumin/Globulin Ratio Amylase Lipase 28 Urine Color Urine Appearance Urine pH Ur Specific [place] Urine Protein Urine Glucose (UA) Urine Ketones Urine Blood Urine Nitrite Urine Bilirubin Urine Urobilinogen Ur Leukocyte Esterase Urine RBC Urine WBC Ur Epithelial Cells Urine Bacteria Urine Opiates Screen Urine Barbiturates Ur Phencyclidine Scrn U Amphetamin/Meth Scrn U Benzodiazepines Scrn U Cocaine Metab Screen U Cannabinoids Screen EKG shows normal sinus rhythm with moderate sinus arrhythmia. Rate is 70 bpm. Normal axis. Normal R wave progression. No ST segment or T wave changes indicative of acute ischemia borderline prolonged QT interval. Departure - Departure Clinical Impression: Substance abuse Nausea and vomiting Qualifiers: Vomiting type: unspecified Vomiting Intractability: non-intractable Qualified Code(s): R11.2 - Nausea with vomiting, unspecified Disposition: Discharge to Home or Self Care Condition: Fair Departure Forms: ED Discharge - Pt. Copy, Patient Portal Self Enrollment Instructions: DI for Gastroesophageal Reflux Disease (GERD), DI for Gastritis, Morning Sickness (DC), Polysubstance Abuse (DC) Diet: bland diet Activity: increase activity as tolerated Referrals: Libia Glass NP [Primary Care Provider] - 1-2 Weeks Prescriptions: Ondansetron Odt [Zofran ODT] 4 mg PO Q8HR PRN #5 tab PRN Reason: Nausea--Moderate Famotidine 20 mg PO DAILY #14 tab Home Medications: Ambulatory Orders Ondansetron Odt [Zofran ODT] 8 mg PO Q8H PRN 30 Days #15 tab 12/12/19 Buspirone HCl [Buspirone Hydrochloride] 7.5 mg PO BID 02/12/20 Famotidine 20 mg PO DAILY #14 tab 02/12/20 Ondansetron Odt [Zofran ODT] 4 mg PO Q8HR PRN #5 tab 02/12/20 Sertraline HCl [Zoloft] 50 mg PO DAILY 02/12/20 Additional Instructions: The patient is a 24-year-old female presented emergency room with nausea and vomiting since early hours of this morning. Symptoms are controlled with Phenergan here and the patient received 2 L of IV fluid. She will be written for Zofran for as needed use. She has had nausea and vomiting with her pregnancies in the past. 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 Obviously she needs to stay away from any substance abuse. ER warnings are given. Keep follow-up with Dr. Lester this coming week.
== END 2020-02-12 13:45 | disposition home or self-care (01) ==
LOC: ER 09:36
DX: O99.322 Drug use complicating pregnancy, second trimester (principal); O21.9 Vomiting of pregnancy, unspecified; F15.10 Other stimulant abuse, uncomplicated; R11.2 Nausea with vomiting, unspecified
CPT/HCPCS: 36415; 80053; 80307; 81001; 82150; 82550; 82553; 83690; 83735; 84484; 85025; 93005; A4216; J2550; J7030